=== PATIENT | female | born 1965 | race Caucasian/White ===

== ENCOUNTER 2017-06-03 09:08 | Inpatient (IN) | payer BC ==
[2017-05-17 10:58] VITALS: Ht 162.6 cm; Wt 75.7 kg
--- NOTE | 2017-05-17 11:26 | PAT Medication Instructions ---
Service Date May 17, 2017. Current Home Medication List Albuterol Sulfate (Proair Respiclick), 2 PUFF INH Q4 PRN for SOB/Wheezing Azelastine Hcl (Astelin Nasal [place]), 2 SPRAYS ALPHONSO 1-2 X DAILY Citalopram Hydrobromide (Citalopram Hydrobromide), 20 MG PO HS Levocetirizine Dihydrochloride (Xyzal), 5 MG PO HS Montelukast Sodium (Singulair), 10 MG PO QPM Multivitamins/Minerals (Mvi With Minerals), 1 TAB PO QPM Saccharomyces Boulardii (Probiotic), 1 CAP PO QPM Medication Instructions For Your Scheduled Surgery - Take the following medications the morning of surgery: Azelastine Hcl (Astelin Nasal [place]), 2 SPRAYS ALPHONSO 1-2 X DAILY Albuterol Sulfate (Proair Respiclick), 2 PUFF INH Q4 PRN for SOB/Wheezing (use if needed; BRING TO HOSPITAL) - Take the following medications as scheduled the night before surgery: Citalopram Hydrobromide (Citalopram Hydrobromide), 20 MG PO HS Levocetirizine Dihydrochloride (Xyzal), 5 MG PO HS Montelukast Sodium (Singulair), 10 MG PO QPM Multivitamins/Minerals (Mvi With Minerals), 1 TAB PO QPM Saccharomyces Boulardii (Probiotic), 1 CAP PO QPM Albuterol Sulfate (Proair Respiclick), 2 PUFF INH Q4 PRN for SOB/Wheezing If you have any questions please call us at [phone] or [phone] or [phone]
[2017-06-03] VITALS (8 sets, daily range): BP systolic 93–114; BP diastolic 58–72; PULSE 55–69; TEMP 34.9–36.5; O2SAT 93–100
[~2017-06-03] VITALS: Ht 162.6 cm; Wt 75.7 kg
[2017-06-03] MEDS: TRANEXAMIC ACID INJ 1,000 MG in SODIUM CHLORIDE 0.9% 100ML 100 ML IV SCH ×2 (06:30→11:35)
[~2017-06-03 09:08] MED LIST: ACETAMINOPHEN 500 MG TAB PO SCH; ALBU18002 INH; ASTN NAE; ATROPINE SULFATE 0.1 MG/ML 5ML SYR IV PRN; BUPIVACAINE 0.25% 30 ML VIAL ONE; BUPIVACAINE 0.5 % 5 MG/1 ML PF 10ML VIAL ONE; CEFAZOLIN 2000 MG/60 ML D5W 60 ML IV SCH; CITA20TA4 PO; EpHEDrine SULFATE INJ 50 MG/ML AMP IV PRN; FAMOTIDINE 20 MG TAB PO SCH; GABAPENTIN 300 MG CAP PO SCH; LACTATED RINGER'S 1000ML 1,000 ML IV SCH; LACTATED RINGER'S 1000ML 500 ML IV ONE; LACTATED RINGER'S 1000ML IV SCH; LEVO-371 PO; MONT1TAB3 PO; MULT-513 PO; ONDANSETRON INJ 2 MG/ML 2 ML VIAL IV PRN; ROPIVACAINE 5MG/ML 30 ML 150 MG, BUPIVACAINE/EPINEPHR 0.5% MPF 30 ML, KETOROLAC TROMETH... INFIL SCH; SACC250C11 PO; TRAMADOL HCL 50 MG TAB PO SCH
--- NOTE | 2017-06-03 09:55 | History & Physical Bridge Note ---
H&P Re-Evaluation Bridge Note: I have examined the patient, reviewed the History & Physical and in the interval since the performance of the History & Physical I have noted the following changes of clinical significance: No changes noted
--- NOTE | 2017-06-03 09:57 | History and Physical ---
History & Physical Date Jun 03, 2017. Chief Complaint Osteoarthritis Right Knee History of Present Illness The patient is a 51 year old female with complaints of Past Medical/Surgical History Medical Problems: (1) Allergic rhinitis (2) Depression (3) Normal colonoscopy Surgical Problems: (1) H/O dilation and curettage (2) H/O sinus surgery (3) Hx of tonsillectomy (4) S/P right knee arthroscopy Additional History Hepatic Disease: No Endocrine Disorder: No Kidney Disease: No Hypertension: No Heart Disease: No Bleeding Tendencies: No Infectious Diseases: No Allergies Coded Allergies: Animal Dander (Verified Allergy, Unknown, HAY FEVER, 06/03/17) Dust (Verified Allergy, Unknown, HAY FEVER, 06/03/17) NO KNOWN DRUG ALLERGIES (Verified Allergy, Unknown, NKDA, 06/03/17) POLLEN (Verified Allergy, Unknown, HAY FEVER, 06/03/17) Ragweed (Verified Allergy, Unknown, HAYFEVER, 06/03/17) Home Medications Scheduled Azelastine Hcl (Astelin Nasal [place]), 2 SPRAYS ALPHONSO 1-2 X DAILY Citalopram Hydrobromide (Citalopram Hydrobromide), 20 MG PO HS Levocetirizine Dihydrochloride (Xyzal), 5 MG PO HS Montelukast Sodium (Singulair), 10 MG PO QPM Multivitamins/Minerals (Mvi With Minerals), 1 TAB PO QPM Saccharomyces Boulardii (Probiotic), 1 CAP PO QPM Scheduled PRN Albuterol Sulfate (Proair Respiclick), 2 PUFF INH Q4 PRN for SOB/Wheezing Physical Examination Skin: warm/dry, no rash Eyes: normal inspection, EOMI, sclerae normal ENT: normal ENT inspection, pharynx normal Head: normocephalic, atraumatic Neck: supple, no adenopathy, trachea midline Respiratory/Chest: lungs clear, normal breath sounds, no respiratory distress Cardiovascular: regular rate, rhythm, no edema, no murmur Abdomen / GI: normal bowel sounds, non tender Back: normal inspection Extremities: normal inspection, normal range of motion Neurologic/Psych: no motor/sensory deficits, alert, normal reflexes, oriented x 3 Diagnosis Osteoarthritis Right Knee ASA Classification: ASA Class II Plan of Treatment Right Total Knee
[2017-06-03] MEDS ORDERED: ONDANSETRON INJ 2 MG/ML 2 ML VIAL ONE (10:41)
[2017-06-03] MEDS ORDERED: PROPOFOL IV EMULSION 10 MG/ML 20 ML VIAL IV ONE (10:41)
[2017-06-03] MEDS ORDERED: FENTANYL CITRATE INJ 50 MCG/1 ML 2 ML VIAL ONE (10:42)
[2017-06-03] MEDS ORDERED: MIDAZOLAM HCL 1 MG/ML 2ML VIAL ONE ×2 (10:42→12:11)
[2017-06-03] MEDS ORDERED: ORTHO JOINT ANESTHETIC ONE (10:49)
[2017-06-03] MEDS ORDERED: BACITRACIN 50000 UNIT VIAL ONE (10:49)
[2017-06-03] MEDS ORDERED: BUPIVACAINE 0.5 % 5 MG/1 ML PF 10ML VIAL ONE (11:23)
--- NOTE | 2017-06-03 13:33 | [facility] Post Operative Brief Note ---
Immediate Operative Summary Operative Date Jun 03, 2017. Pre-Operative Diagnosis Right knee degenerative joint disease Post-Operative Diagnosis same as pre-operative Procedure(s) Performed Right Total Knee Arthroplasty Surgeon Dr. Suhas Casas Nick Setter Surgeon(s) Leobardo Gillespie PA-C Estimated Blood Loss 20ML Findings as above Specimens A: Right knee bone and tissue Complication(s) None Disposition Recovery Room / PACU
[2017-06-03] MEDS ORDERED: BISACODYL 10 MG SUPP PR PRN (13:45)
[2017-06-03] MEDS ORDERED: EpHEDrine SULFATE 50MG/5ML SYR ONE (13:45)
[2017-06-03] MEDS ORDERED: SOD PHOSPHATE/SOD BIPHOSPHATE ENEMA 132 ML BTL PR PRN (13:45)
[2017-06-03] MEDS ORDERED: MoRPHine SULFATE 2 MG/ML CARP IV PRN (13:45)
[2017-06-03] MEDS ORDERED: ONDANSETRON INJ 2 MG/ML 2 ML VIAL IV PRN (13:45)
[2017-06-03] MEDS ORDERED: METOCLOPRAMIDE HCL INJ 5 MG/ML 2 ML VIAL IV PRN (13:45)
[2017-06-03] MEDS ORDERED: MAGNESIUM HYDROXIDE SUSP 30 ML UDC PO PRN (13:45)
[2017-06-03] MEDS ORDERED: SILVER SULFADIAZINE 1% CR 50 GM JAR EXT PRN (13:45)
--- NOTE | 2017-06-03 14:33 | DIAGNOSTIC IMAGING REPORT ---
RIGHT KNEE 1 OR 2 VIEWS ROUTINE CLINICAL HISTORY: 51 years-old Female presenting with right knee arthritis. TECHNIQUE: Frontal and lateral views of the right knee were obtained. COMPARISON: 08/18/2016. FINDINGS: Interval total right knee arthroplasty with patellar resurfacing. Surgical drain in place. Soft tissue emphysema and skin brenda noted. No acute fracture or malalignment. No hardware competition. Trace knee joint effusion may be present. IMPRESSION: Expected postoperative appearance status post total right knee arthroplasty and patellar resurfacing. Electronically signed by: Chino Baldwin M.D. 06/03/2017 2:32 PM Dictated Date/Time: 06/03/2017 2:31 PM
[2017-06-03] MEDS ORDERED: ALBUTEROL HFA 8 GM INHALER INH PRN (15:15)
--- NOTE | 2017-06-03 15:46 | Anesthesiology Progress Note ---
Anesthesia Post Op Note Date & Time Jun 03, 2017 at 15:46 Vital Signs Pain Intensity: 0 Vital Signs Past 12 Hours Date Time Temp Pulse Resp B/P (MAP) Pulse Ox O2 Delivery O2 Flow Rate FiO2 06/03/17 15:06 62 13 98 06/03/17 15:06 62 13 06/03/17 15:05 94/61 06/03/17 15:01 64 16 06/03/17 15:01 65 16 98 06/03/17 15:00 90/63 06/03/17 14:56 62 10 06/03/17 14:56 61 10 98 06/03/17 14:55 93/64 06/03/17 14:51 62 11 06/03/17 14:51 62 11 98 06/03/17 14:50 99/64 06/03/17 14:46 65 14 06/03/17 14:46 65 14 97 06/03/17 14:45 36.9 06/03/17 14:41 63 16 98 06/03/17 14:41 62 16 06/03/17 14:40 97/65 06/03/17 14:36 68 14 06/03/17 14:36 68 14 97/63 99 06/03/17 14:31 63 13 98 06/03/17 14:31 65 13 06/03/17 14:30 98/67 06/03/17 14:26 64 14 06/03/17 14:26 63 14 97 06/03/17 14:25 103/70 06/03/17 14:21 67 12 97/72 98 06/03/17 14:21 68 12 06/03/17 14:16 67 8 99 06/03/17 14:16 67 8 06/03/17 14:15 105/68 06/03/17 14:11 74 18 98 06/03/17 14:11 72 18 06/03/17 14:10 102/67 06/03/17 14:08 70 14 100 06/03/17 14:08 69 14 06/03/17 14:06 88/60 06/03/17 14:03 68 11 99 06/03/17 14:03 67 11 06/03/17 14:01 107/61 06/03/17 13:59 102/62 06/03/17 13:58 71 14 100 06/03/17 13:58 71 14 06/03/17 13:58 36.2 71 16 102/62 98 Mask 10 06/03/17 09:47 36.5 64 20 97/62 97 Room Air Notes Mental Status: alert / awake / arousable, participated in evaluation Pt Amnestic to Procedure: Yes Nausea / Vomiting: adequately controlled Pain: adequately controlled Airway Patency, RR, SpO2: stable & adequate BP & HR: stable & adequate Hydration State: stable & adequate Neuraxial Anesthesia: was administered, sensory block is resolving Anesthetic Complications: no major complications apparent
[2017-06-03] MEDS: SODIUM CHLORIDE 0.9% 1000ML 1,000 ML IV SCH (16:11)
[2017-06-03] MEDS: KETOROLAC TROMETHAMINE 30 MG/ML VIAL IV. SCH ×2 (16:22→22:29)
--- NOTE | 2017-06-03 16:43 | OPERATIVE REPORT ---
DATE OF OPERATION: 06/03/2017 PREOPERATIVE DIAGNOSIS: Primary osteoarthritis of the right knee. POSTOPERATIVE DIAGNOSIS: Same. PROCEDURE: Right total knee arthroplasty. SURGEON: Dr. Suhas Casas. [employer] MACHINE HELPER: David Gillespie PA-C, whose assistance was necessary for positioning the knee and helping with retraction. ANESTHESIA: Spinal with a right adductor nerve block. COMPLICATIONS: None. CONDITION: Stable to PACU. IMPLANTS USED: I used a [employer]omet Vanguard right total knee arthroplasty with a size 62.5 right femur, 67 tibia, 28 patella and a size 10 posterior stabilized bearing. All complements were cemented with Palacos-G cement. INDICATIONS: Mimi is a pleasant 51-year-old female who presented to my office with chronic right knee pain. X-rays and clinical examination were diagnostic for primary osteoarthritis of the right knee. After failing conservative treatment, she elected to undergo a right total knee arthroplasty. DESCRIPTION OF PROCEDURE: On 06/03/2017, she arrived at [facility] for the above procedure. She was seen in the preoperative holding area and the operative extremity was identified and signed. She and her preoperative antibiotics, a right adductor nerve block and a spinal anesthetic. She was taken back to the operating room, laid on the table in supine position and put under basic sedation. The right knee was then prepped and draped in sterile fashion. Time-out was done and the patient and operative extremity was properly identified. A midline incision was made directly over the patella. Dissection was taken down to the extensor mechanism and a medial parapatellar arthrotomy was used. The medial retinaculum was released. The fat pad was left intact. The knee was then flexed. ACL, PCL and meniscus were then removed. A drill was sent down the center of the femoral canal followed by an intramedullary layla. Off that layla, a distal femoral cutting guide was placed. A 12 mm was resected off the distal femur at 5 degrees of valgus. A posterior referencing guide was then used to measure the distal femur and it measured to be a size 62.5. Two drill holes were placed in 3 degrees of external rotation. A 4-in-1 cutting block was then impacted into place. Anterior, posterior and chamfer cuts were then made. The box was then resected for the posterior stabilizing component. The proximal tibia was exposed. A drill was sent down the center of the tibial canal followed by an intramedullary layla. Off that layla, a proximal tibial resection guide was placed and 2 mm was resected off the low medial side. The tibia was then measured to be a size 67 and the tibia was then punched. The posterior aspect of the knee was then opened up and any soft tissue remnants were removed and osteophytes removed off the posterior femur. Trial components were then placed. The knee was brought through a full range of motion and felt to be stable. The patella was then everted and 8 mm was resected off the posterior aspect. The patella measured to be a size 28 and 3 drill holes were placed. A patellar button was trialled and seemed to be a good fit. Trials were then removed. The knee wound was irrigated and surrounding soft tissues were injected with 100 mL orthopedic pain control cocktail. The final components were cemented into place with Palacos-G cement. A size 10 polyethylene insert was then snapped into place and anterior bar was locked. The entire knee was then irrigated with 3 liters of normal saline solution with bacitracin. Two drains were placed. The extensor mechanism was closed with #1 FiberWire suture in the superior medial aspect and #1 Vicryl both proximally and distally. The skin was closed with 2-0 Vicryl and 3-0 V-Loc suture and brenda. She was then placed in a soft dressing and taken to the postanesthesia care unit in stable condition. She tolerated the procedure well. I attest to the content of the Intraoperative Record and any orders documented therein. Any exception s are noted below.
[2017-06-03] MEDS: FERROUS GLUCONATE 324 MG TAB PO SCH (18:04)
[2017-06-03] MEDS: ACETAMINOPHEN IV 1,000 MG in EMPTY BAG 0 ML IV SCH (18:09)
[2017-06-03] MEDS: CEFAZOLIN IV 1,000 MG in DEXTROSE 5% 50ML 50 ML IV SCH (19:26)
[2017-06-03] MEDS: MONTELUKAST SOD 10 MG TAB PO SCH (20:42)
[2017-06-03] MEDS: CITALOPRAM 20 MG TAB PO SCH (20:42)
[2017-06-03] MEDS: SENNA 8.6 MG TAB PO SCH (20:42)
[2017-06-03] MEDS: DOCUSATE SODIUM 100 MG CAP PO SCH (20:43)
[2017-06-03] MEDS: OXYCODONE HCL IR 5 MG TAB (IMMEDIATE RELEASE) PO PRN (20:47)
[2017-06-03] MEDS ORDERED: ASPIRIN 325 MG ECTAB PO SCH (21:00)
[2017-06-04] VITALS (7 sets, daily range): BP systolic 96–112; BP diastolic 62–71; PULSE 57–72; TEMP 36.5–36.7; O2SAT 93–100
[2017-06-04] MEDS: SODIUM CHLORIDE 0.9% 1000ML 1,000 ML IV SCH ×2 (00:03→09:53)
[2017-06-04] MEDS: ACETAMINOPHEN IV 1,000 MG in EMPTY BAG 0 ML IV SCH ×3 (02:03→17:03)
[2017-06-04] MEDS: CEFAZOLIN IV 1,000 MG in DEXTROSE 5% 50ML 50 ML IV SCH (03:51)
[2017-06-04] MEDS: KETOROLAC TROMETHAMINE 30 MG/ML VIAL IV. SCH ×4 (03:52→21:05)
[2017-06-04 06:27] LABS: HEMATOCRIT 33.4 % (37-47); MEAN CELL VOLUME 96.5 fL (80-100); MEAN CORPUSCULAR HEMOGLOBIN 31.8 pg (25-34); MEAN CORPUSCULAR HGB CONC 32.9 g/dl (32-36); MEAN PLATELET VOLUME 8.4 fL (7.4-10.4); PLATELET COUNT 204 K/uL (130-400); RED BLOOD COUNT 3.46 M/uL (4.2-5.4)
[2017-06-04 07:02] LABS: BUN/CREATININE RATIO 12.9 (10-20); CALCIUM 8.2 mg/dl (8.5-10.1); CREATININE 0.93 mg/dl (0.60-1.20); POTASSIUM 4.2 mmol/L (3.5-5.1)
[2017-06-04] MEDS ORDERED: LVNIS30 SQ (07:09)
[2017-06-04] MEDS ORDERED: RXC5 PO (07:09)
--- NOTE | 2017-06-04 07:11 | Discharge Instructions ---
Discharge Instructions Date of Service Jun 04, 2017. Admission Reason for Admission: Right Knee Osteoarthritis Discharge Discharge Diagnosis / Problem: Right Total Knee Discharge Goals Goal(s): Decrease discomfort, Improve function Activity Recommendations Activity Limitations: as noted below . Instructions / Follow-Up Instructions / Follow-Up Activity and Therapy Recommendations: * If you are using [facility] then Physical Therapy will be provided until they feel you are ready to start Outpatient Physical Therapy. If you are not using a Home Health agency then Outpatient Physical Therapy should start about 3-5 days from your day of surgery. Therapy will last about 6-10 weeks * It is important not to put a pillow under your knee when you are relaxing or sleeping. It is just as important to make sure you are getting your knee perfectly straight as it is to regain your knee bend. * You were shown a series of exercises in the hospital. Do these exercises three times each day including the exercises you were shown in physical therapy. * Get up and walk several times each day. For the first four weeks, try not to stand or walk for more than one hour at a time. If you do stand or walk for more than one hour, you will not hurt anything, but your leg will likely swell. * As you feel comfortable, you may change from the walker or crutches to a cane and then to independent walking. Medications: * Narcotic You will likely be sent home from the hospital with a prescription for the narcotic pain medication that worked best throughout your stay. * Aspirin Most patients will be required to take Aspirin 325mg twice a day for 6 weeks after surgery. This is obtained [id number] and a prescription is not necessary. * Other medications may be prescribed for specific circumstances. If you have any questions, please call the office at . * Resume previous home medications unless otherwise instructed TEDs/Elastic Stockings: The white elastic stockings help limit swelling and prevent blood clots from forming in your legs.~ The more you wear them, the more they work. Wear them for six weeks. Showering: You may shower 5 days from the day of surgery. Let the soapy shower water run over the brenda. Do not scrub or soak the incision. Things To Watch For: * Drainage from the incision site that occurs more than one week after your surgery. * Increased redness at the incision site. * Fever above 102 degrees Fahrenheit. * Unusual chest pain or shortness of breath. * Call [facility] at with any of the above problems Follow-Up Visit: Follow-up with Dr. Casas 2-3 weeks after your day of surgery. An appointment was probably scheduled when you signed-up for surgery in the office. If you have any questions call Office Instructions: More detailed instructions as well as Frequently Asked Questions were provided in a folder by our office when you signed-up for surgery. Please review these instructions when you get home. If you have any further questions or concerns, please feel free to call the office at [phone] Current Hospital Diet Patient's current hospital diet: Regular Diet Discharge Diet Recommended Diet: Regular Diet Procedures Procedures Performed: Right Total Knee Arthroplasty Pending Studies Studies pending at discharge: no Medical Emergencies . Who to Call and When: Medical Emergencies: If at any time you feel your situation is an emergency, please call [phone] immediately. . Non-Emergent Contact Non-Emergency issues call your: Surgeon Call Non-Emergent contact if: wound has increased drainage, wound has increased redness . "Provider Documentation" section prepared by Suhas Casas. . VTE Core Measure Inpt VTE Proph given/why not?: Enoxaparin (Lovenox)SQ
--- NOTE | 2017-06-04 08:23 | PROGRESS NOTE ---
DATE: 06/04/2017 CHIEF COMPLAINT: Status post right total knee arthroplasty, postop day #1. PROGRESS: Mimi was seen and examined at bedside today. Overall, she is doing very well. She has already been up and ambulating. Her pain seems controlled. She has no complaints. PHYSICAL EXAMINATION: RIGHT KNEE: The dressing is clean and dry and the drain is to suction. She has active dorsiflexion and plantarflexion of her right ankle and sensation is intact. LABORATORY DATA: She has an H&H today of 11.0 and 33.4. Her glucose is 102. Her vital signs are all stable on room air, although she is a little hypotensive and bradycardic, but appears stable. She is voiding on her own. X-rays postoperatively of the right knee show the prosthesis to be in anatomical alignment without any evidence of fracture, dislocation or loosening. IMPRESSION: Status post right total knee arthroplasty, postop day #1. PLAN: At this point, she is doing very well. She is on Lovenox for 2 weeks and then aspirin for DVT prophylaxis. She has a history of a PE last year. Her pain is controlled on the oxycodone and scripts were written. She will be seen by physical therapy today. Tomorrow, the nursing staff can change the dressing, pulled the drain and she is scheduled for discharge to home with [facility].
[2017-06-04] MEDS: MULTIVITAMIN TAB PO SCH (08:44)
[2017-06-04] MEDS: FERROUS GLUCONATE 324 MG TAB PO SCH ×3 (08:44→18:14)
[2017-06-04] MEDS: DOCUSATE SODIUM 100 MG CAP PO SCH ×2 (08:44→20:25)
[2017-06-04] MEDS: ENOXAPARIN 30 MG/0.3 ML SYR SQ SCH ×2 (09:54→21:04)
[2017-06-04] MEDS: OXYCODONE HCL IR 5 MG TAB (IMMEDIATE RELEASE) PO PRN (17:02)
[2017-06-04] MEDS: MONTELUKAST SOD 10 MG TAB PO SCH (20:22)
[2017-06-04] MEDS: CITALOPRAM 20 MG TAB PO SCH (20:22)
[2017-06-04] MEDS: SENNA 8.6 MG TAB PO SCH (20:25)
[2017-06-05 00:56] VITALS: BP 98/66; PULSE 61; TEMP 36.5; O2SAT 96
[2017-06-05] MEDS: ACETAMINOPHEN IV 1,000 MG in EMPTY BAG 0 ML IV SCH ×3 (01:53→18:10)
[2017-06-05] MEDS: KETOROLAC TROMETHAMINE 30 MG/ML VIAL IV. SCH ×2 (03:44→10:55)
[2017-06-05 07:32] VITALS: BP 97/66; PULSE 62; TEMP 36.8; O2SAT 96
[2017-06-05] MEDS: FERROUS GLUCONATE 324 MG TAB PO SCH ×3 (07:45→18:09)
--- NOTE | 2017-06-05 08:34 | PROGRESS NOTE ---
DATE: 06/05/2017 CHIEF COMPLAINT: Status post right total knee arthroplasty, postop day #2. PROGRESS: Mimi was seen and examined at bedside today. Overall, she is doing very well. She did have an assisted fall last night. When they removed her dressing, she saw the blood on the dressing. She got lightheaded and slid down a wall. She had no injuries from that. Otherwise, she has been doing great. PHYSICAL EXAMINATION: RIGHT KNEE: The incision is clean and dry and her leg is out in full extension. She has active dorsiflexion and plantarflexion of her right ankle. Sensation is intact. IMPRESSION: Status post right total knee arthroplasty, postop day #2. PLAN: At this point, she is doing very well. Her pain is controlled. She is working well with physical therapy. We will discharge her to home later this morning with [facility] health.
--- NOTE | 2017-06-05 08:48 | DISCHARGE SUMMARY ---
DISCHARGE DIAGNOSIS: Primary osteoarthritis of the right knee. PROCEDURE: Right total knee arthroplasty on 06/03/[address] Suhas Casas. DISCHARGE INSTRUCTIONS: 1. Lovenox 30 mg twice a day for 2 weeks and then aspirin 325 mg twice a day for 4 weeks. 2. Oxycodone 5-10 mg every 4 hours as needed for pain. 3. Albuterol 2 puffs every 4 hours as needed. 4. Astelin nasal spray 2 sprays twice a day. 5. Celexa 20 mg at night. 6. Xyzal 5 mg at night. 7. Singulair 10 mg at night. 8. Daily multivitamin. 9. Daily probiotics. 10. Follow up with Dr. Casas in 2 weeks. 11. Call the office of Dr. Casas with any questions or concerns. HOSPITAL COURSE: Mimi is a pleasant 51-year-old female who presented to my office with chronic right knee pain. X-rays and clinical examination were diagnostic for primary osteoarthritis of the right knee. After failing extensive conservative treatment, she elected to undergo a right total knee arthroplasty. On 06/03/2017, she arrived at [facility] and underwent a right total knee arthroplasty without complications. She had a spinal anesthetic and a right adductor nerve block. Postoperatively, she was placed in a soft compressive dressing and discharged to general orthopedic floor. She does have a history of pulmonary embolism about a year ago. So, I decided to use Lovenox for antimicrobial prophylaxis in the short term. She was started 30 mg twice a day. Her hospital course was uneventful. On postop day #1, her H&H was stable at 11.0 and 33.4. She was able to work well with physical therapy and her pain was controlled. On postop day #2, the dressing was changed and the drain was pulled. She continued to work well with physical therapy. She was subsequently discharged to home with Lovenox for 2 weeks and [facility] Cymax. ADDENDUM: Upon discharge Mimi got up and she felt quite dizzy. Blood pressures showed that she was hypotensive at 97/66. She did not feel ready to go home at that time. We encourage oral fluid intake. She stayed overnight and over the last 24 hours she is feeling much better. Her current blood pressure is 124/78. She has been up several times and is asymptomatic. She was subsequently then discharged to home with the above instructions on postop day #3. AMISH
[2017-06-05 09:03] VITALS: BP 97/66; PULSE 62; TEMP 36.8; O2SAT 96
[2017-06-05] MEDS: MULTIVITAMIN TAB PO SCH (10:03)
[2017-06-05] MEDS: ENOXAPARIN 30 MG/0.3 ML SYR SQ SCH ×2 (10:54→21:48)
[2017-06-05] MEDS: DOCUSATE SODIUM 100 MG CAP PO SCH ×2 (10:55→20:18)
[2017-06-05 15:11] VITALS: BP 106/56; PULSE 67; TEMP 37.4; O2SAT 98
[2017-06-05 16:00] VITALS: O2SAT 98
[2017-06-05] MEDS: OXYCODONE HCL IR 5 MG TAB (IMMEDIATE RELEASE) PO PRN (16:47)
[2017-06-05] MEDS: MONTELUKAST SOD 10 MG TAB PO SCH (20:18)
[2017-06-05] MEDS: CITALOPRAM 20 MG TAB PO SCH (20:19)
[2017-06-05] MEDS: SENNA 8.6 MG TAB PO SCH (20:19)
[2017-06-05 23:13] VITALS: BP 117/74; PULSE 73; TEMP 36.8; O2SAT 95
[2017-06-06] MEDS: ACETAMINOPHEN IV 1,000 MG in EMPTY BAG 0 ML IV SCH (02:18)
[2017-06-06 07:15] VITALS: BP 124/78; PULSE 68; TEMP 37.2; O2SAT 98
[2017-06-06] MEDS: MULTIVITAMIN TAB PO SCH (08:18)
[2017-06-06] MEDS: DOCUSATE SODIUM 100 MG CAP PO SCH (08:18)
[2017-06-06] MEDS: FERROUS GLUCONATE 324 MG TAB PO SCH (08:18)
[2017-06-06] MEDS: OXYCODONE HCL IR 5 MG TAB (IMMEDIATE RELEASE) PO PRN (09:04)
--- NOTE | 2017-06-06 09:55 | PROGRESS NOTE ---
DATE: 06/06/2017 CHIEF COMPLAINT: Status post right total knee arthroplasty, postop day #3. PROGRESS NOTE: Mimi was seen and examined at bedside today. Overall, she is doing much better. Upon discharge, she had an hypotensive episode. When she was standing up, she was feeling dizzy and did not feel ready to go home. We encouraged p.o. fluid intake over the last 24 hours and she is feeling much better. She has been up several times and has been asymptomatic. PHYSICAL EXAMINATION: Physical examination of the right knee, the incision looks good. There is no drainage. She is neurovascularly intact. VITAL SIGNS: Vital signs are all stable on room air. Her blood pressure is 124/78 and her pulse is 68. IMPRESSION: Status post right total knee arthroplasty, postop day #3. PLAN: At this point, she is doing much better. She is going to do stairs for physical therapy this morning and then be discharged to home with [facility] health.
[2017-06-06 10:13] VITALS: BP 124/78; PULSE 68; TEMP 37.2; O2SAT 98
[2017-06-06] MEDS: ENOXAPARIN 30 MG/0.3 ML SYR SQ SCH (10:32)
== END 2017-06-06 10:45 | disposition home health service (06) | DRG 470 ==
LOC: C.ACU 09:08 → C.3E 10:26 → ENRESERV 14:20
PROVIDERS: ADMIT Orthopaedic Surgery; ATTEND Orthopaedic Surgery
PROC: 0SRC0J9 Replacement of Right Knee Joint with Synthetic Substitute, Cemented, Open Approach (ICD-10-PCS; principal; 2017-06-03 11:35)
DX: M17.11 Unilateral primary osteoarthritis, right knee (principal); J45.909 Unspecified asthma, uncomplicated; F32.9 Major depressive disorder, single episode, unspecified; Z86.718 Personal history of other venous thrombosis and embolism; Z86.711 Personal history of pulmonary embolism; Z79.899 Other long term (current) drug therapy

== ENCOUNTER 2022-09-05 10:06 | Observation (INO) ==
[2022-09-05] MEDS ORDERED: SODIUM CHLORIDE 0.9% 1000ML 1,000 ML IV SCH ×2 (11:00→17:04)
--- NOTE | 2022-09-05 11:00 | Emergency Department Note ---
History of Present Illness General Chief complaint: Syncope Stated complaint: FEVER,SYNCOPE Time Seen by Provider: 09/05/22 10:43 History of Present Illness This 57-year-old female presents today with her , for evaluation of fever, myalgias, arthralgias, nausea, vomiting, and a syncopal episode that occurred this morning. Patient states she had a tick bite 2 and half weeks ago. It was on her arm for 5 days and she did not notice it. Left shoulder became sore and she developed a rash. Tick was removed and she was treated with a one- time dose of doxycycline. Patient states that she has had increasing myalgias over the last 3 days. Yesterday she developed shaking chills, fatigue, headache, nausea and vomiting, as well as the arthralgias and myalgias. She did take some ibuprofen yesterday without improvement. She got out of bed this morning and was attempting to go to the bathroom. She states she remembers falling to her knees and feeling very weak. Her states he heard a thump and went to check on her. He states she was not responsive and her eyes were rolled back in her head. He supported her head and put a wet washcloth on her. He states she came to. There was no seizure-like activity. She currently denies any chest pain, shortness of breath, dizziness, or abdominal pain. She states her left shoulder is sore and continues to have a large reddened area. She denies any other joint effusions. No other complaints. She has an appointment to see her PCP at the end of this week for blood work. Home Medications Medication Instructions Recorded Confirmed Type azelastine 137 mcg (0.1 %) nasal 2 spray intranasal BID #0 BTLS 05/15/16 09/05/22 History spray aerosol citalopram 20 mg tablet 20 mg PO HS #0 tabs 05/15/16 09/05/22 History montelukast 10 mg tablet 10 mg PO PM #0 tabs 05/15/16 09/05/22 History multivitamin 1 tab PO DAILY #0 tabs 05/15/16 09/05/22 History albuterol sulfate 90 mcg/actuation 2 inh inhalation Q4H PRN sob ##0 05/17/17 09/05/22 History breath activated powder inhaler (ProAir RespiClick) fluticasone propionate 50 1 spray intranasal BID PRN 09/05/22 09/05/22 History mcg/actuation nasal Allergic Symptoms spray,suspension levocetirizine 5 mg tablet 5 mg PO DAILY 09/05/22 09/05/22 History rivaroxaban 20 mg tablet (Xarelto) 20 mg PO PM 09/05/22 09/05/22 History doxycycline hyclate 100 mg tablet 100 mg PO BID 19 days #38 tabs 09/07/22 Rx Allergies Allergy/AdvReac Type Severity Reaction Status Date / Time animal dander Allergy Unknown HAY FEVER Verified 09/05/22 12:32 No Known Drug Allergies Allergy Unknown NKDA Verified 09/05/22 12:32 pollen extracts Allergy Unknown HAY FEVER Verified 09/05/22 12:32 ragweed pollen Allergy Unknown HAYFEVER Verified 09/05/22 12:32 Dust Allergy Unknown HAY FEVER Uncoded 09/05/22 12:32 Past Med/Surg History Medical History Allergic rhinitis Depression History of pulmonary embolism Moderate persistent asthma Surgical History H/O dilation and curettage H/O sinus surgery History of arthroscopic knee surgery Hx of tonsillectomy Family History Mother Melanoma Social History Smoking Status: Never smoker Hx Alcohol Use: No Hx Substance Use: No Preferred Language: Pashto Communication Ability: Effective [facility] Director Required: No Beliefs That Will Affect Care: None Current Living Situation: Spouse Other Information That Helps Us Care for You: No Feels Safe at Home: Yes Safety Concerns: Feels Safe At This Time Assistive Devices: None Review of Systems A total of 10 systems reviewed and were otherwise negative Physical Exam Vital Signs Vital Signs - 24 hr 09/06/22 16:40 Temperature 37.5 C Temperature Source Oral Pulse Rate [Finger] 81 Respiratory Rate 18 Blood Pressure [Right Arm] 103/62 Blood Pressure Mean [Right Arm] 75 Blood Pressure Position [Right Arm] Semi-fowlers Pulse Oximetry 98 Oxygen Delivery Method Room Air General: Well-developed, well-nourished, middle-aged white female, in obvious discomfort. No acute distress. Laying on the bed. Alert and oriented. Conversive. She does appear ill. Skin: Warm and dry with good turgor. No rashes or lesions. No ecchymosis. She does have a round area of erythema and slight edema present on her left deltoid. It is approximately 5 cm in diameter. She states this is where the tick bite occurred. No bull's-eye lesions or additional rash. The patient is not diaphoretic. No abrasions. HEENT: Normocephalic atraumatic. Eyes PERRLA, EOMI. No conjunctiva or scleral injection. Ears TMs intact bilaterally with good light reflexes. No erythema or bulging. No hemotympanum. Canals are patent. Nares patent bilaterally without turbinate enlargement. No significant drainage. No epistaxis. Oropharynx without erythema or exudate. Uvula midline, oral mucosa moist. No lesions present. Lymphatics are palpated without anterior or posterior chain enlargement or tenderness. Heart: Heart RRR. No MGR. Peripheral pulses are 2+. Lungs: Lungs are clear to auscultation. No crackles rhonchi or wheezing. Good air movement. The patient is able to take a deep breath. Abdomen: Abdomen was inspected, auscultated, and palpated. Bowel sounds present x 4. Soft, nontender to palpation. No hepato-splenomegaly. No masses noted. No rebound. Musculoskeletal: Gross motor function of the upper and lower extremities is intact and unremarkable. Left shoulder is sore over the deltoid with motion. Neurologic: Gross sensation is intact across the upper and lower extremities by soft touch. Course Administered Medications Acetaminophen (Acetaminophen 325 Mg Tab) 650 mg PO Q4H PRN PRN Reason: pain/fever Stop: 10/05/22 17:03 Last Admin: 09/07/22 10:56 Dose: 650 mg Documented By: Admin: 09/07/22 05:57 Dose: 650 mg Documented By: Admin: 09/07/22 01:05 Dose: 650 mg Documented By: Admin: 09/06/22 18:43 Dose: 650 mg Documented By: Admin: 09/06/22 12:06 Dose: 650 mg Documented By: Admin: 09/06/22 07:26 Dose: 650 mg Documented By: Admin: 09/05/22 22:28 Dose: 650 mg Documented By: ESTRELLA Cetirizine HCl (Cetirizine Hcl 10 Mg Tablet) 10 mg PO DAILY [facility] Stop: 10/06/22 12:59 Last Admin: 09/07/22 08:24 Dose: Not Given Documented By: Admin: 09/06/22 14:16 Dose: Not Given Documented By: KYLE Citalopram Hydrobromide (Citalopram 20 Mg Tab) 20 mg PO HS RUSSELL Stop: 10/05/22 20:59 Last Admin: 09/06/22 21:44 Dose: Not Given Documented By: Admin: 09/05/22 22:30 Dose: Not Given Documented By: ESTRELLA Ceftriaxone Sodium 2,000 mg/ (Dextrose) 70 mls @ 100 mls/hr IV Q24H RUSSELL; Protocol Stop: 09/08/22 08:59 Last Infusion: 09/07/22 09:57 Dose: 0 mls/hr Documented By: Admin: 09/07/22 09:07 Dose: 100 mls/hr Documented By: JONATHAN Co-signed By: REFUGIO Infusion: 09/06/22 09:43 Dose: 0 mls/hr Documented By: Admin: 09/06/22 09:01 Dose: 100 mls/hr Documented By: KYLE Ketorolac Tromethamine (Ketorolac Tromethamine 10 Mg Tablet) 10 mg PO Q8H PRN PRN Reason: Pain or Fever Stop: 09/08/22 08:32 Last Admin: 09/06/22 16:15 Dose: 10 mg Documented By: KYLE Montelukast Sodium (Montelukast Sodium 10 Mg Tablet) 10 mg PO PM RUSSELL Stop: 10/05/22 20:59 Last Admin: 09/06/22 21:44 Dose: Not Given Documented By: Admin: 09/05/22 22:30 Dose: Not Given Documented By: ESTRELLA Rivaroxaban (Rivaroxaban 20 Mg Tab) 20 mg PO QDD URSSELL Stop: 10/05/22 17:29 Last Admin: 09/06/22 17:00 Dose: 20 mg Documented By: Admin: 09/05/22 17:39 Dose: Not Given Documented By: KD Discontinued Medications Acetaminophen (Acetaminophen 500 Mg Tab) 1,000 mg PO NOW STA Stop: 09/05/22 13:29 Last Admin: 09/05/22 13:36 Dose: 1,000 mg Documented By: QGV Sodium Chloride (Nss 1000ml) 1,000 mls @ 999 mls/hr IV .Q1H1M RUSSELL Stop: 09/05/22 12:00 Last Infusion: 09/05/22 13:30 Dose: 0 mls/hr Documented By: Admin: 09/05/22 11:30 Dose: 999 mls/hr Documented By: QGV Ceftriaxone Sodium (Rocephin) 1,000 mg in 50 mls @ 100 mls/hr IV NOW STA Stop: 09/05/22 14:16 Last Admin: 09/05/22 15:14 Dose: Not Given Documented By: QGV Doxycycline Hyclate 100 mg/ (Dextrose) 110 mls @ 50 mls/hr IV Q12H RUSSELL; Protocol Stop: 09/16/22 03:59 Last Infusion: 09/07/22 06:24 Dose: 0 mls/hr Documented By: Admin: 09/07/22 04:02 Dose: 50 mls/hr Documented By: Infusion: 09/06/22 18:27 Dose: 0 mls/hr Documented By: Admin: 09/06/22 16:15 Dose: 50 mls/hr Documented By: Infusion: 09/06/22 06:58 Dose: 0 mls/hr Documented By: Admin: 09/06/22 04:46 Dose: 50 mls/hr Documented By: RES Doxycycline Hyclate 100 mg/ (Dextrose) 110 mls @ 55 mls/hr IV NOW ONE Stop: 09/05/22 17:29 Last Infusion: 09/05/22 17:37 Dose: 0 mls/hr Documented By: Admin: 09/05/22 15:40 Dose: 55 mls/hr Documented By: QGV Sodium Chloride (Nss 1000ml) 1,000 mls @ 80 mls/hr IV .[id number] RUSSELL Stop: 09/06/22 05:33 Last Infusion: 09/06/22 06:21 Dose: 0 mls/hr Documented By: Admin: 09/05/22 17:40 Dose: 80 mls/hr Documented By: CLOTILDE Sodium Chloride (Nss 1000ml) 1,000 mls @ 125 mls/hr IV .Q8H RUSSELL Stop: 09/06/22 23:59 Last Infusion: 09/07/22 01:05 Dose: 0 mls/hr Documented By: Admin: 09/06/22 17:00 Dose: 125 mls/hr Documented By: Infusion: 09/06/22 16:18 Dose: 125 mls/hr Documented By: Admin: 09/06/22 08:18 Dose: 125 mls/hr Documented By: KYLE Ibuprofen (Ibuprofen 200 Mg Tab) 400 mg PO NOW STA Stop: 09/05/22 15:23 Last Admin: 09/05/22 15:40 Dose: 400 mg Documented By: QGV Ketorolac Tromethamine (Ketorolac Tromethamine 15 Mg/Ml Vial) 15 mg IV NOW ONE Stop: 09/06/22 00:22 Last Admin: 09/06/22 01:41 Dose: 15 mg Documented By: ESTRELLA Miscellaneous (Levocetirizine 5mg- Order Awaiting Action) 1 each N/A QS RUSSELL Stop: 10/06/22 00:00 Last Admin: 09/06/22 09:02 Dose: Not Given Documented By: Admin: 09/06/22 00:03 Dose: Not Given Documented By: ESTRELLA Medical Decision Making Differential Diagnosis Lyme disease, anaplasmosis, viral illness, COVID infection, dehydration syncopal episode of unknown cause, arrhythmia Medical Records Attestation: I reviewed the patient's medical records. Home Medications Current Medication List: was personally reviewed by me Laboratory Data CBC, chemistry panel, troponin, Lyme titer, anaplasmosis smear, TSH, lactate, COVID swab, and UA were obtained. CBC shows no elevation in white count at 8.16. The rest of the CBC is relatively unremarkable. Urine is clear with no ketones, 2+ blood, and no leukocyte esterase. No bacteria. Chemistry panel is unremarkable. Lyme titer is negative. Smear is negative. Combination COVID swab is negative for COVID, RSV, and influenza. Troponin is normal. Lactate is normal at 0.8. TSH is also normal. Result diagrams: 09/07/22 08:43 09/07/22 08:43 Lab Results 1109/05/22 09/05/22 Range/Units 11:39 12:05 12:05 WBC 8.16 (4.8-10.8) K/ul RBC 3.61 L (3.93-5.22) M/uL Hgb 11.7 L (12.0-16.0) g/dl Hct 34.9 (34.1-44.9) % MCV 96.7 (80.0-100.0) fL MCH 32.4 (25.0-34.0) pg MCHC 33.5 (32.0-36.0) g/dL RDW Std Deviation 47.2 H (36.4-46.3) fL RDW Coeff of Sen 13.2 (11.5-14.5) % Plt Count 194 (130-400) K/uL MPV 8.7 L (9.4-12.3) fL Immature Gran % (Auto) 0.6 % Neut % (Auto) 85.1 % Lymph % (Auto) 6.7 % [place] % (Auto) 7.4 % Eos % (Auto) 0.0 % Baso % (Auto) 0.2 % Neut # (Auto) 6.94 H (1.4-6.5) K/uL Lymph # (Auto) 0.55 L (1.2-3.4) K/uL [place] # (Auto) 0.60 (0.24-0.82) K/uL Eos # (Auto) 0.00 (0-0.50) K/uL Baso # (Auto) 0.02 (0-0.2) K/uL Immature Gran # (Auto) 0.05 H (0.00-0.02) K/uL PT (9.0-12.0) Seconds INR (0.9-1.1) Sodium (136-145) mmol/L Potassium (3.5-5.1) mmol/L Chloride (98-107) mmol/L Carbon Dioxide (21-32) mmol/L Anion Gap (3-11) BUN (6-23) mg/dl Creatinine (0.6-1.2) mg/dl Est Cr Clr Drug Dosing Est GFR ( Amer) ml/min Est GFR (Non-Af Amer) ml/min BUN/Creatinine Ratio (10-20) Glucose (70-99(Fasting)) mg/dl Lactate (0.4-2.0) mmol/L Calcium (8.5-10.1) mg/dl Magnesium (1.7-2.4) mg/dl Total Bilirubin (0.2-1.0) mg/dl AST (13-39) U/L ALT (7-52) U/L Alkaline Phosphatase (34-104) U/L Troponin I High Sens (0-14) pg/ml Total Protein (6.0-8.3) gm/dl Albumin (3.4-5.0) gm/dl Globulin (2.5-4.0) gm/dl Albumin/Globulin Ratio (0.9-2) TSH (0.300-4.500) uIu/ml Urine Color Yellow Urine Appearance Clear (Clear) Urine pH 6.5 (4.5-7.5) Ur Specific [place] 1.017 (1.000-1.030) Urine Protein Trace H (Negative) Urine Glucose (UA) Negative (Negative) Urine Ketones Negative (Negative) Urine Blood 2+ H (Negative) Urine Nitrite Negative (Negative) Urine Bilirubin Negative (Negative) Urine Urobilinogen Negative (Negative) Ur Leukocyte Esterase Negative (Negative) Urine WBC (Auto) 1-5 (0-5) /hpf Urine RBC (Auto) 10-30 H (0-4) /hpf U Hyaline Cast (Auto) 1-5 (0-5) /lpf U Epithel Cells (Auto) 20-30 H (0-5) /lpf Urine Bacteria (Auto) Negative (Negative) Anaplasma Smear See Comment Babesia Smear See Comment Lyme Disease IgG Ab (Negative) Lyme Disease IgM Ab (Negative) SARS-CoV-2 (PCR) (Negative) Influenza Type A (PCR) (Neg) Influenza Type B (PCR) (Neg) RSV (RT-PCR) (Neg) 09/05/22 09/05/22 09/05/22 Range/Units 12:05 12:05 12:05 WBC (4.8-10.8) K/ul RBC (3.93-5.22) M/uL Hgb (12.0-16.0) g/dl Hct (34.1-44.9) % MCV (80.0-100.0) fL MCH (25.0-34.0) pg MCHC (32.0-36.0) g/dL RDW Std Deviation (36.4-46.3) fL RDW Coeff of Sen (11.5-14.5) % Plt Count (130-400) K/uL MPV (9.4-12.3) fL Immature Gran % (Auto) % Neut % (Auto) % Lymph % (Auto) % [place] % (Auto) % Eos % (Auto) % Baso % (Auto) % Neut # (Auto) (1.4-6.5) K/uL Lymph # (Auto) (1.2-3.4) K/uL [place] # (Auto) (0.24-0.82) K/uL Eos # (Auto) (0-0.50) K/uL Baso # (Auto) (0-0.2) K/uL Immature Gran # (Auto) (0.00-0.02) K/uL PT 12.2 H (9.0-12.0) Seconds INR 1.2 H (0.9-1.1) Sodium 139 (136-145) mmol/L Potassium 4.0 (3.5-5.1) mmol/L Chloride 106 (98-107) mmol/L Carbon Dioxide 23 (21-32) mmol/L Anion Gap 10 (3-11) BUN 17 (6-23) mg/dl Creatinine 0.95 (0.6-1.2) mg/dl Est Cr Clr Drug Dosing Not Reportable Est GFR ( Amer) 76.5 ml/min Est GFR (Non-Af Amer) 66.0 ml/min BUN/Creatinine Ratio 17.9 (10-20) Glucose 98 (70-99(Fasting)) mg/dl Lactate (0.4-2.0) mmol/L Calcium 9.0 (8.5-10.1) mg/dl Magnesium 1.8 (1.7-2.4) mg/dl Total Bilirubin 0.6 (0.2-1.0) mg/dl AST 22 (13-39) U/L ALT 17 (7-52) U/L Alkaline Phosphatase 47 (34-104) U/L Troponin I High Sens 4.1 (0-14) pg/ml Total Protein 6.9 (6.0-8.3) gm/dl Albumin 4.2 (3.4-5.0) gm/dl Globulin 2.7 (2.5-4.0) gm/dl Albumin/Globulin Ratio 1.6 (0.9-2) TSH 0.484 (0.300-4.500) uIu/ml Urine Color Urine Appearance (Clear) Urine pH (4.5-7.5) Ur Specific [place] (1.000-1.030) Urine Protein (Negative) Urine Glucose (UA) (Negative) Urine Ketones (Negative) Urine Blood (Negative) Urine Nitrite (Negative) Urine Bilirubin (Negative) Urine Urobilinogen (Negative) Ur Leukocyte Esterase (Negative) Urine WBC (Auto) (0-5) /hpf Urine RBC (Auto) (0-4) /hpf U Hyaline Cast (Auto) (0-5) /lpf U Epithel Cells (Auto) (0-5) /lpf Urine Bacteria (Auto) (Negative) Anaplasma Smear Babesia Smear Lyme Disease IgG Ab (Negative) Lyme Disease IgM Ab (Negative) SARS-CoV-2 (PCR) (Negative) Influenza Type A (PCR) (Neg) Influenza Type B (PCR) (Neg) RSV (RT-PCR) (Neg) 09/05/22 09/05/22 09/05/22 Range/Units 12:05 14:13 14:22 WBC (4.8-10.8) K/ul RBC (3.93-5.22) M/uL Hgb (12.0-16.0) g/dl Hct (34.1-44.9) % MCV (80.0-100.0) fL MCH (25.0-34.0) pg MCHC (32.0-36.0) g/dL RDW Std Deviation (36.4-46.3) fL RDW Coeff of Sen (11.5-14.5) % Plt Count (130-400) K/uL MPV (9.4-12.3) fL Immature Gran % (Auto) % Neut % (Auto) % Lymph % (Auto) % [place] % (Auto) % Eos % (Auto) % Baso % (Auto) % Neut # (Auto) (1.4-6.5) K/uL Lymph # (Auto) (1.2-3.4) K/uL [place] # (Auto) (0.24-0.82) K/uL Eos # (Auto) (0-0.50) K/uL Baso # (Auto) (0-0.2) K/uL Immature Gran # (Auto) (0.00-0.02) K/uL PT (9.0-12.0) Seconds INR (0.9-1.1) Sodium (136-145) mmol/L Potassium (3.5-5.1) mmol/L Chloride (98-107) mmol/L Carbon Dioxide (21-32) mmol/L Anion Gap (3-11) BUN (6-23) mg/dl Creatinine (0.6-1.2) mg/dl Est Cr Clr Drug Dosing Est GFR ( Amer) ml/min Est GFR (Non-Af Amer) ml/min BUN/Creatinine Ratio (10-20) Glucose (70-99(Fasting)) mg/dl Lactate 0.8 (0.4-2.0) mmol/L Calcium (8.5-10.1) mg/dl Magnesium (1.7-2.4) mg/dl Total Bilirubin (0.2-1.0) mg/dl AST (13-39) U/L ALT (7-52) U/L Alkaline Phosphatase (34-104) U/L Troponin I High Sens (0-14) pg/ml Total Protein (6.0-8.3) gm/dl Albumin (3.4-5.0) gm/dl Globulin (2.5-4.0) gm/dl Albumin/Globulin Ratio (0.9-2) TSH (0.300-4.500) uIu/ml Urine Color Urine Appearance (Clear) Urine pH (4.5-7.5) Ur Specific [place] (1.000-1.030) Urine Protein (Negative) Urine Glucose (UA) (Negative) Urine Ketones (Negative) Urine Blood (Negative) Urine Nitrite (Negative) Urine Bilirubin (Negative) Urine Urobilinogen (Negative) Ur Leukocyte Esterase (Negative) Urine WBC (Auto) (0-5) /hpf Urine RBC (Auto) (0-4) /hpf U Hyaline Cast (Auto) (0-5) /lpf U Epithel Cells (Auto) (0-5) /lpf Urine Bacteria (Auto) (Negative) Anaplasma Smear Babesia Smear Lyme Disease IgG Ab Negative (Negative) Lyme Disease IgM Ab Negative (Negative) SARS-CoV-2 (PCR) NEGATIVE (Negative) Influenza Type A (PCR) Negative (Neg) Influenza Type B (PCR) Negative (Neg) RSV (RT-PCR) Negative (Neg) 09/06/22 09/06/22 Range/Units 06:06 06:06 WBC 6.54 (4.8-10.8) K/ul RBC 3.33 L (3.93-5.22) M/uL Hgb 10.9 L (12.0-16.0) g/dl Hct 31.4 L (34.1-44.9) % MCV 94.3 (80.0-100.0) fL MCH 32.7 (25.0-34.0) pg MCHC 34.7 (32.0-36.0) g/dL RDW Std Deviation 45.7 (36.4-46.3) fL RDW Coeff of Sen 13.2 (11.5-14.5) % Plt Count 171 (130-400) K/uL MPV 9.0 L (9.4-12.3) fL Immature Gran % (Auto) % Neut % (Auto) % Lymph % (Auto) % [place] % (Auto) % Eos % (Auto) % Baso % (Auto) % Neut # (Auto) (1.4-6.5) K/uL Lymph # (Auto) (1.2-3.4) K/uL [place] # (Auto) (0.24-0.82) K/uL Eos # (Auto) (0-0.50) K/uL Baso # (Auto) (0-0.2) K/uL Immature Gran # (Auto) (0.00-0.02) K/uL PT (9.0-12.0) Seconds INR (0.9-1.1) Sodium 137 (136-145) mmol/L Potassium 3.6 (3.5-5.1) mmol/L Chloride 107 (98-107) mmol/L Carbon Dioxide 23 (21-32) mmol/L Anion Gap 7 (3-11) BUN 16 (6-23) mg/dl Creatinine 0.93 (0.6-1.2) mg/dl Est Cr Clr Drug Dosing 66.7 Est GFR ( Amer) 78.5 ml/min Est GFR (Non-Af Amer) 67.7 ml/min BUN/Creatinine Ratio 17.2 (10-20) Glucose 114 H (70-99(Fasting)) mg/dl Lactate (0.4-2.0) mmol/L Calcium 8.1 L (8.5-10.1) mg/dl Magnesium (1.7-2.4) mg/dl Total Bilirubin (0.2-1.0) mg/dl AST (13-39) U/L ALT (7-52) U/L Alkaline Phosphatase (34-104) U/L Troponin I High Sens (0-14) pg/ml Total Protein (6.0-8.3) gm/dl Albumin (3.4-5.0) gm/dl Globulin (2.5-4.0) gm/dl Albumin/Globulin Ratio (0.9-2) TSH (0.300-4.500) uIu/ml Urine Color Urine Appearance (Clear) Urine pH (4.5-7.5) Ur Specific [place] (1.000-1.030) Urine Protein (Negative) Urine Glucose (UA) (Negative) Urine Ketones (Negative) Urine Blood (Negative) Urine Nitrite (Negative) Urine Bilirubin (Negative) Urine Urobilinogen (Negative) Ur Leukocyte Esterase (Negative) Urine WBC (Auto) (0-5) /hpf Urine RBC (Auto) (0-4) /hpf U Hyaline Cast (Auto) (0-5) /lpf U Epithel Cells (Auto) (0-5) /lpf Urine Bacteria (Auto) (Negative) Anaplasma Smear Babesia Smear Lyme Disease IgG Ab (Negative) Lyme Disease IgM Ab (Negative) SARS-CoV-2 (PCR) (Negative) Influenza Type A (PCR) (Neg) Influenza Type B (PCR) (Neg) RSV (RT-PCR) (Neg) Imaging Data My Impression: Chest x-ray obtained today was reviewed by me and read by radiology. No pneumothorax or pleural effusion. No pneumonia. Calcified granuloma in the right upper lobe is incidentally noted. No acute cardiopulmonary findings. ECG Data Additional Comments: EKG obtained today shows a normal sinus rhythm with a rate of 79. No acute ST or T wave changes are noted. These were present on previous EKG from March 2017. This was reviewed with Dr. Amado. Blood Pressure Blood Pressure Findings: Normal blood pressure MDM Narrative Patient was evaluated in room B9. Conservative care measures were discussed. IV was established. Labs were obtained. White count was unremarkable. Kidney and liver function tests were normal. She was negative for influenza, COVID, and RSV. Lyme titer was also negative, though this may be altered because of her prophylactic doxycycline dose. Symptoms are consistent with Lyme infection. Chest x-ray obtained today was unremarkable. I did check her temperature on initial presentation. She was 37.1. Part way through her evaluation, she did develop shaking chills. Temperature was retaken and found to be 39.3. Patient was given oral Tylenol 1000 mg with gradual improvement in her symptoms. She was reassured that there was no evidence for abnormal rhythm. EKG was normal. Patient was placed on a monitor while in the ED. She had no episodes of ectopy and remained in normal sinus rhythm. Possibility of dehydration as her cause of syncope was discussed. She also appears to have cellulitis of the left shoulder with the erythema, warmth, and tenderness from the previous tick bite. Impression & Plan Syncope, Cellulitis Patient was given 1 L normal sterile saline IV bolus. She was also given Rocephin gram IV for prophylaxis treatment of cellulitis. Option of discharge versus admission was discussed with she and her . Patient stated that she did not feel well at all, and given her acute onset of fever and constitutional symptoms, observation was thought to be warranted. Patient was seen in conjunction with Dr. Amado, who also evaluated the patient and concurred with today's diagnosis and treatment plan. Hospitalist service was consulted. Please see that dictation for final management. Discharge Plan Visit Data Chief Complaint: Syncope Stated Complaint: FEVER,SYNCOPE ED Provider: Suhas Amado ED Midlevel Provider: Mikal Jerez Discharge Problem: Syncope, Cellulitis Patient Disposition: Admitted As Inpatient Discharge Instructions Interventions: ED Discharge Assessment Last Done: 09/05/22 16:30
[2022-09-05 12:29] LABS: Basophils # (auto) 0.02 K/uL (0-0.2); Basophils % (auto) 0.2 %; Hematocrit (blood only) 34.9 % (34.1-44.9); Hemoglobin 11.7 g/dl (12.0-16.0); Immature Granulocytes # (auto) 0.05 K/uL (0.00-0.02); Immature Granulocytes % (auto) 0.6 %; Lymphocytes # (auto) 0.55 K/uL (1.2-3.4); Lymphocytes % (auto) 6.7 %; Mean Corpuscular Hemoglobin 32.4 pg (25.0-34.0); Mean Corpuscular Hgb Conc 33.5 g/dL (32.0-36.0); Mean Corpuscular Volume 96.7 fL (80.0-100.0); Mean Platelet Volume 8.7 fL (9.4-12.3); Monocytes % (auto) 7.4 %; Neutrophils # (auto) 6.94 K/uL (1.4-6.5); Neutrophils % (auto) 85.1 %; Platelet Count 194 K/uL (130-400); RDW Coefficient of Variation 13.2 % (11.5-14.5); RDW Standard Deviation 47.2 fL (36.4-46.3); Red Blood Count 3.61 M/uL (3.93-5.22); White Blood Count 8.16 K/ul (4.8-10.8)
[2022-09-05 12:39] LABS: Appearance Urine Clear (Clear); Bacteria Urine Automated Negative (Negative); Bilirubin Urine Negative (Negative); Blood Urine 2+ (Negative); Color Urine Yellow; Epithelial Cell Urine Auto 20-30 /lpf (0-5); Glucose Urine UA Negative (Negative); Ketones Urine Negative (Negative); Leukocyte Esterase Urine Negative (Negative); Nitrite Urine Negative (Negative); Protein Urine Trace (Negative); Specific Gravity Urine 1.017 (1.000-1.030); Urobilinogen Urine Negative (Negative); pH Urine 6.5 (4.5-7.5)
[2022-09-05 12:40] LABS: INR 1.2 (0.9-1.1); Prothrombin Time 12.2 Seconds (9.0-12.0)
[2022-09-05 12:57] LABS: Alanine Aminotransferase 17 U/L (7-52); Albumin Globulin Ratio 1.6 (0.9-2); Albumin Level 4.2 gm/dl (3.4-5.0); Alkaline Phosphatase 47 U/L (34-104); Anion Gap 10 (3-11); Aspartate Aminotransferase 22 U/L (13-39); BUN Creatinine Ratio 17.9 (10-20); Bilirubin,Total 0.6 mg/dl (0.2-1.0); Blood Urea Nitrogen 17 mg/dl (6-23); Carbon Dioxide 23 mmol/L (21-32); Chloride 106 mmol/L (98-107); Est GFR (African American) 76.5 ml/min; Globulin 2.7 gm/dl (2.5-4.0); Glucose 98 mg/dl (70-99(Fasting)); Magnesium 1.8 mg/dl (1.7-2.4); Sodium 139 mmol/L (136-145); Total Protein 6.9 gm/dl (6.0-8.3)
[2022-09-05 12:59] LABS: Troponin I High Sensitivity 4.1 pg/ml (0-14)
[2022-09-05 13:04] LABS: Lyme Ab IgG w/WB Rflx Negative (Negative); Lyme Ab IgM w/WB Rflx Negative (Negative)
[2022-09-05] MEDS ORDERED: ACETAMINOPHEN 500 MG TAB PO STA (13:28)
[2022-09-05] MEDS ORDERED: cefTRIAXone SODIUM 1,000 MG/50 ML BAG IV STA (13:47)
--- NOTE | 2022-09-05 14:53 | XRay Report ---
XR chest 2V PA/lateral CLINICAL HISTORY: Fever. COMPARISON STUDY: Chest CT May 15, 2016 and chest radiograph 04/16/2017 FINDINGS: Lung volumes are normal. Lungs are clear. Calcified granuloma within the right upper lobe i s incidentally noted. There is no pneumothorax or pleural effusion. Cardiac size is normal. Mediastin al contours are normal. There is no evidence for pulmonary edema. IMPRESSION: No acute cardiopulmonary findings. ACT 112: Negative or not required by law. Electronically signed by: Rasta Brown M.D. 09/05/2022 2:51 PM
[2022-09-05 15:17] LABS: Influenza A virus by PCR Negative (Neg); Influenza B virus by PCR Negative (Neg); RSV by PCR Negative (Neg); SARS CoV2 RNA(COVID-19)Cepheid NEGATIVE (Negative)
[2022-09-05] MEDS ORDERED: IBUPROFEN 200 MG TAB PO STA (15:22)
[2022-09-05] MEDS ORDERED: DOXYCYCLINE HYCLATE 100 MG in DEXTROSE 5% 100 ML IV ONE (15:30)
--- NOTE | 2022-09-05 16:39 | History & Physical Report ---
Date of Service September 05, 2022 Assessment & Plan (1) Syncope: Plan: Syncopal event x1 at home today Likely due to orthostasis from hypovolemia from dehydration. Patient appears dry on exam with dry mucous membranes. IVF, monitor orthostatic BPs (2) Tick bite: Plan: Admit to [facility] Patient presenting from home with reports of fever, body aches, syncopal event x 1. Febrile in ED at 39.3 --received Tylenol with improvement Patient suspects she had a tick bite on 08/15, tick was subsequently removed on 08/19. Patient received 1 day of empiric doxycycline by PCP. 3 days ago, patient developed body aches, fever. In the ED, Lyme IgG and IgM negative, Anaplasma and Babesia smears negative for inclusion bodies No other sources of infection identified, highly suspicious for tickborne illne ss. ?? False negative in the setting of partial treatment w/ doxycycline. Await confirmatory Babesia and Anaplasma testing Start IV doxycycline (3) History of pulmonary embolism: Plan: Continue Xarelto (4) Moderate persistent asthma: Plan: Not on routine inhalers, no signs of acute exacerbation (5) Depression: Plan: Continue citalopram (6) DVT prophylaxis: Plan: On Xarelto History of Present Illness Chief Complaint: Fever, body aches, syncopal event Primary Care Provider: Adelfo Tillman, 57-year-old female with PMH asthma, history of pulmonary embolism on Xarelto, depression, allergic rhinitis, and other problems listed below who presents the ED for evaluation of fever, body aches, syncopal event. Patient reports that she was bit by a tick about 3 weeks ago. She was bit on her left upper arm and the tick was fully removed. Patient called her PCP and was placed on 1 day of empiric doxycycline. 3 days ago, patient reports she developed myalgias and arthralgias along with a fever and a rash on her left upper arm where she was bit by the tick. Rash is circular in nature, warm and red. She reports fevers at home as high as 102.6. This morning, patient's heard a loud thud coming from the bathroom and he found the patient on the floor with her eyes rolled back in her head. He reports that he placed a cool washcloth on her head and she came to. There was no loss of bowel or bladder function. Patient was not confused. Patient was then brought to the ED for further evaluation. Patient denies chest pain or shortness of breath. She reports 1 episode of vomiting this morning however denies abdominal pain, diarrhea. No urinary symptoms. In the ED, patient spiked a fever of 39.3. Labs are unremarkable, Lyme IgG and IgM negative, Anaplasma and Babesia smears negative for inclusion bodies. Patient was given IVF and Tylenol. Allergies Allergy/AdvReac Type Severity Reaction Status Date / Time animal dander Allergy Unknown HAY FEVER Verified 09/05/22 12:32 No Known Drug Allergies Allergy Unknown NKDA Verified 09/05/22 12:32 pollen extracts Allergy Unknown HAY FEVER Verified 09/05/22 12:32 ragweed pollen Allergy Unknown HAYFEVER Verified 09/05/22 12:32 Dust Allergy Unknown HAY FEVER Uncoded 09/05/22 12:32 Home Medications Medication Instructions Recorded Confirmed Type azelastine 137 mcg (0.1 %) nasal 2 spray intranasal BID #0 BTLS 05/15/16 09/05/22 History spray aerosol citalopram 20 mg tablet 20 mg PO HS #0 tabs 05/15/16 09/05/22 History montelukast 10 mg tablet 10 mg PO PM #0 tabs 05/15/16 09/05/22 History multivitamin 1 tab PO DAILY #0 tabs 05/15/16 09/05/22 History albuterol sulfate 90 mcg/actuation 2 inh inhalation Q4H PRN sob ##0 05/17/17 09/05/22 History breath activated powder inhaler (ProAir RespiClick) fluticasone propionate 50 1 spray intranasal BID PRN 09/05/22 09/05/22 History mcg/actuation nasal Allergic Symptoms spray,suspension levocetirizine 5 mg tablet 5 mg PO DAILY 09/05/22 09/05/22 History rivaroxaban 20 mg tablet (Xarelto) 20 mg PO PM 09/05/22 09/05/22 History Past Med/Surg History Medical History Allergic rhinitis Depression History of pulmonary embolism Moderate persistent asthma Surgical History H/O dilation and curettage H/O sinus surgery History of arthroscopic knee surgery Hx of tonsillectomy Family History (Updated 09/05/22 @ 16:33 by SCARLETT Weiss) Mother Melanoma Social History (Updated 09/05/22 @ 16:33 by SCARLETT Weiss) Smoking Status: Never smoker Hx Alcohol Use: No Hx Substance Use: No Preferred Language: Luxembourger Communication Ability: Effective Fire Extinguisher Installer Required: No Beliefs That Will Affect Care: None Current Living Situation: Spouse Other Information That Helps Us Care for You: No Feels Safe at Home: Yes Safety Concerns: Feels Safe At This Time Review of Systems Review of Systems: ROS per HPI, all other systems reviewed and negative Physical Exam Constitutional: WD/WN, vitals as above Eyes: PERRL, conjunctivae normal, anicteric sclerae ENMT: Ears: no external ear abnormality Nose: no external nose abnormality Mouth: + dry oral mucous membranes Respiratory: normal respiratory effort, lungs clear to auscultation Cardiovascular: Rate/Rhythm: regular rate and regular rhythm Vessels: normal peripheral pulses Extremities: no edema Gastrointestinal (Abdomen): normal bowel sounds, soft, nontender, no hepatosplenomegaly Musculoskeletal: no cyanosis or clubbing, extremities motor strength 5/5 Skin: + rash (~ 6cm circular area on LUE w/ erythema, slightly raised. No drainage. ) skin is warm and dry Neurologic: PERRL, EOMI, accommodation nl, no face palsy, no dysarthria Psychiatric: A+Ox3, euthymic affect Results & Data Results & Data ([facility]) Vital Signs (Past 12 Hours) Vital Signs Temp Pulse Pulse Resp BP Pulse Ox O2 Del Method 09/05/22 15:48 37.6 C H 86 20 99/61 L 95 Room Air 09/05/22 13:28 39.3 C H 92 H 20 116/62 95 Room Air 09/05/22 11:00 79 20 95 Room Air 09/05/22 11:00 79 20 110/60 95 Room Air 09/05/22 10:28 37.0 C 82 20 98 Room Air Laboratory Results Short CBC 09/05/22 Range/Units 12:05 WBC 8.16 (4.8-10.8) K/ul Hgb 11.7 L (12.0-16.0) g/dl Hct 34.9 (34.1-44.9) % Plt Count 194 (130-400) K/uL BMP 09/05/22 12:05 Sodium 139 Potassium 4.0 Chloride 106 Carbon Dioxide 23 BUN 17 Creatinine 0.95 Glucose 98 Calcium 9.0 Liver Function 09/05/22 Range/Units 12:05 Total Bilirubin 0.6 (0.2-1.0) mg/dl AST 22 (13-39) U/L ALT 17 (7-52) U/L Alkaline Phosphatase 47 (34-104) U/L Albumin 4.2 (3.4-5.0) gm/dl Urine 09/05/22 Range/Units 11:39 Urine Color Yellow Urine Appearance Clear (Clear) Urine pH 6.5 (4.5-7.5) Ur Specific [place] 1.017 (1.000-1.030) Urine Protein Trace H (Negative) Urine Glucose (UA) Negative (Negative) Diagnostic Findings Chest X-Ray 09/05/22 14:22 XR chest 2V PA/lateral CLINICAL HISTORY: Fever. COMPARISON STUDY: Chest CT May 15, 2016 and chest radiograph 04/16/2017 FINDINGS: Lung volumes are normal. Lungs are clear. Calcified granuloma within the right upper lobe is incidentally noted. There is no pneumothorax or pleural effusion. Cardiac size is normal. Mediastinal contours are normal. There is no evidence for pulmonary edema. IMPRESSION: No acute cardiopulmonary findings. ACT 112: Negative or not required by law. Electronically signed by: Rasta Brown M.D. 09/05/2022 2:51 PM Code Status & VTE Plan Code Status Patient is a full code as per my discussion with her. VTE Prophylaxis Plan VTE Prophylaxis will be ordered: No Supervising Physician Co-Signing Physician Notes I have seen and examined the patient and have discussed the case with the provider above. I agree with the assessment and plan as stated. 57 yo F with recent tick embedded in her shoulder for 4 days per her report with subsequent high fevers, malaise and joint pains beginning one week later. Temp reported around 103F at home. Physical exam reveals large circular area of erythema on her right deltoid with a nodular center. Full skin exam performed and no other rash, eschar or wound noted. Physical exam is otherwise unremarkable. Agree with this clinically appearing consistent with rickettsial illness and started this patient on doxycycline empirically. Lyme negative. Awaiting anaplasma and babesia. Also she has no other symptoms that would suggest an alternative source of infection such as no respiratory or urinary or GI issues. CXR is clear and UA is normal. Cont doxycycline pending culture results and clinical improvement. DO Tramaine
[2022-09-05] MEDS: RIVAROXABAN 20 MG TAB PO SCH (17:39)
[2022-09-05] MEDS ORDERED: RIVAROXABAN 20 MG TAB PO SCH (21:00)
[2022-09-05] MEDS: ACETAMINOPHEN 325 MG TAB PO PRN (22:28)
[2022-09-05] MEDS: MONTELUKAST SODIUM 10 MG TABLET PO SCH (22:30)
[2022-09-05] MEDS: CITALOPRAM 20 MG TAB PO SCH (22:30)
[2022-09-06] MEDS ORDERED: KETOROLAC TROMETHAMINE 15 MG/ML VIAL IV ONE (00:21)
[2022-09-06] MEDS: DOXYCYCLINE HYCLATE 100 MG in DEXTROSE 5% 100 ML IV SCH ×2 (04:46→16:15)
[2022-09-06] MEDS: ACETAMINOPHEN 325 MG TAB PO PRN ×3 (07:26→18:43)
[2022-09-06 07:40] LABS: Hematocrit (blood only) 31.4 % (34.1-44.9); Hemoglobin 10.9 g/dl (12.0-16.0); Mean Corpuscular Hemoglobin 32.7 pg (25.0-34.0); Mean Corpuscular Hgb Conc 34.7 g/dL (32.0-36.0); Mean Corpuscular Volume 94.3 fL (80.0-100.0); Platelet Count 171 K/uL (130-400); RDW Coefficient of Variation 13.2 % (11.5-14.5); RDW Standard Deviation 45.7 fL (36.4-46.3); Red Blood Count 3.33 M/uL (3.93-5.22); White Blood Count 6.54 K/ul (4.8-10.8)
[2022-09-06 08:05] LABS: BUN Creatinine Ratio 17.2 (10-20); Calcium 8.1 mg/dl (8.5-10.1); Creatinine Clr Calc Pharmacy 66.7 ml/min; Est GFR (African American) 78.5 ml/min; Est GFR (Non-African American) 67.7 ml/min; Potassium 3.6 mmol/L (3.5-5.1)
[2022-09-06] MEDS: SODIUM CHLORIDE 0.9% 1000ML 1,000 ML IV SCH ×2 (08:18→17:00)
[2022-09-06] MEDS ORDERED: KETOROLAC TROMETHAMINE 10 MG TABLET PO PRN (08:33)
[2022-09-06] MEDS: cefTRIAXone SODIUM 2,000 MG in DEXTROSE 5% 50 ML IV SCH (09:01)
--- NOTE | 2022-09-06 09:50 | Electrocardiogram Report ---
Test Reason : Blood Pressure : / mmHG Vent. Rate : 079 BPM Atrial Rate : 079 BPM P-R Int : 134 ms QRS Dur : 090 ms QT Int : 382 ms P-R-T Axes : 071 080 065 degrees QTc Int : 438 ms Poor data quality, interpretation may be adversely affected Normal sinus rhythm Left atrial enlargement Nonspecific ST abnormality Anterolateral leads Abnormal ECG When compared with ECG of 06-APR-2017 14:57, Nonspecific ST abnormality Anterolateral leads more prononced Confirmed by Khari Pozo ([id number]) on 09/06/2022 9:50:02 AM Referred By: REFERRED SELF Confirmed By:Khari Pozo
--- NOTE | 2022-09-06 12:44 | Hospitalist Progress Note ---
Date of Service September 06, 2022 Assessment & Plan (1) Syncope: Plan: Syncopal Episode Likely due to orthostasis from hypovolemia/dehydration Continue gentle IV fluids No focal deficits Currently asymptomatic Will consider CT head headache persists (2) Tick bite: Plan: Presumed Lyme's disease H/O Tick bite on 08/15, Tick was subsequently removed on 08/19 Received 1 day course of doxycycline by PCP. Lyme Screen: Negative No evidence of intracytoplasmic neutrophilic inclusions to suggest anaplasmosis No evidence of red blood cell inclusions to suggest Babesia Blood Culture pending Continue IV doxycycline, Rocephin for now Titrate antibiotics as able (3) History of pulmonary embolism: Plan: Continue Xarelto (4) Moderate persistent asthma: Plan: Not on routine inhalers No signs of acute exacerbation (5) Depression: Plan: Continue citalopram (6) DVT prophylaxis: Plan: On Xarelto Admission and Anticipated Discharge Date Admission Date: September 05, 2022 Subjective Patient is seen and examined at bedside States having left shoulder erythema, soreness Also reports headache and generalized weakness Denies any chest pain, dyspnea, dizziness, nausea, abdominal pain Review of Systems Review of Systems: All systems reviewed & are unremarkable except as noted in Subjective Physical Exam Physical Exam: Physical Exam: Vitals signs as noted above General Appearance:Moderately built and nourished, no apparent distress Head: normocephalic, Atraumatic Eyes: normal inspection, EOMI Neck: supple, Trachea midline Respiratory/Chest: Normal breath sounds, CTA, No accessory muscle use Cardiovascular: S1, S2, No murmur Abdomen/GI:Soft, Non tender, Bowel sounds present Extremities/Musculoskeletal:normal inspection, no edema, Left shoulder erythema Neurologic/Psych:AAOX3, grossly no focal neurological deficits Skin: normal color, warm Results & Data Results & Data ([facility]) Vital Signs (Past 12 Hours) Vital Signs Temp Pulse Resp BP Pulse Ox O2 Del Method 09/06/22 11:37 37 C 09/06/22 09:50 37.7 C H 09/06/22 09:00 37.9 C H 09/06/22 08:23 39.2 C H 09/06/22 07:12 38.7 C H 91 H 18 107/66 96 Room Air 09/06/22 04:52 38.6 C H 09/06/22 02:06 37.9 C H Laboratory Results Short CBC 09/06/22 Range/Units 06:06 WBC 6.54 (4.8-10.8) K/ul Hgb 10.9 L (12.0-16.0) g/dl Hct 31.4 L (34.1-44.9) % Plt Count 171 (130-400) K/uL BMP 09/05/22 09/06/22 12:05 06:06 Sodium 139 137 Potassium 4.0 3.6 Chloride 106 107 Carbon Dioxide 23 23 BUN 17 16 Creatinine 0.95 0.93 Glucose 98 114 H Calcium 9.0 8.1 L Liver Function 09/05/22 Range/Units 12:05 Total Bilirubin 0.6 (0.2-1.0) mg/dl AST 22 (13-39) U/L ALT 17 (7-52) U/L Alkaline Phosphatase 47 (34-104) U/L Albumin 4.2 (3.4-5.0) gm/dl Urine 09/05/22 Range/Units 11:39 Urine Color Yellow Urine Appearance Clear (Clear) Urine pH 6.5 (4.5-7.5) Ur Specific [place] 1.017 (1.000-1.030) Urine Protein Trace H (Negative) Urine Glucose (UA) Negative (Negative)
[2022-09-06] MEDS: CETIRIZINE HCL 10 MG TABLET PO SCH ×2 (14:15→14:16)
[2022-09-06] MEDS: RIVAROXABAN 20 MG TAB PO SCH (17:00)
[2022-09-06] MEDS: MONTELUKAST SODIUM 10 MG TABLET PO SCH ×2 (21:42→21:44)
[2022-09-06] MEDS: CITALOPRAM 20 MG TAB PO SCH ×2 (21:42→21:44)
[2022-09-07] MEDS: ACETAMINOPHEN 325 MG TAB PO PRN ×3 (01:05→10:56)
[2022-09-07] MEDS: DOXYCYCLINE HYCLATE 100 MG in DEXTROSE 5% 100 ML IV SCH (04:02)
[2022-09-07] MEDS: CETIRIZINE HCL 10 MG TABLET PO SCH (08:24)
[2022-09-07] MEDS: cefTRIAXone SODIUM 2,000 MG in DEXTROSE 5% 50 ML IV SCH (09:07)
[2022-09-07 09:12] LABS: Basophils # (auto) 0.02 K/uL (0-0.2); Basophils % (auto) 0.5 %; Eosinophils # (auto) 0.17 K/uL (0-0.50); Eosinophils % (auto) 3.9 %; Hematocrit (blood only) 30.9 % (34.1-44.9); Hemoglobin 10.5 g/dl (12.0-16.0); Immature Granulocytes # (auto) 0.01 K/uL (0.00-0.02); Immature Granulocytes % (auto) 0.2 %; Lymphocytes # (auto) 1.24 K/uL (1.2-3.4); Lymphocytes % (auto) 28.7 %; Mean Corpuscular Hemoglobin 32.5 pg (25.0-34.0); Mean Corpuscular Volume 95.7 fL (80.0-100.0); Mean Platelet Volume 9.3 fL (9.4-12.3); Monocytes # (auto) 0.39 K/uL (0.24-0.82); Neutrophils # (auto) 2.49 K/uL (1.4-6.5); Neutrophils % (auto) 57.7 %; Platelet Count 165 K/uL (130-400); RDW Standard Deviation 45.8 fL (36.4-46.3); Red Blood Count 3.23 M/uL (3.93-5.22); White Blood Count 4.32 K/ul (4.8-10.8)
[2022-09-07 09:36] LABS: BUN Creatinine Ratio 12.2 (10-20); Calcium 8.1 mg/dl (8.5-10.1); Creatinine Clr Calc Pharmacy 83.9 ml/min; Est GFR (African American) 103.5 ml/min; Est GFR (Non-African American) 89.3 ml/min; Magnesium 1.9 mg/dl (1.7-2.4); Potassium 3.8 mmol/L (3.5-5.1)
--- NOTE | 2022-09-07 10:46 | CT Scan Report ---
CT head/brain wo con CLINICAL HISTORY: headache Technique: Contiguous axial CT images of the head were acquired from the base of the skull to the natasha benson without intravenous contrast administration. Images were viewed in brain, subdural and bone [facility] . Automated dose lowering techniques and/or adjustment according to patient size were utilized for this exam. Comparison: None available at the time of this dictation. Findings: The ventricles, basal cisterns, and cerebral sulci are normal. There is no acute intracranial hemorrh age or evidence of acute territorial infarction. Neither mass effect, shift of the midline structures , nor abnormal extra-axial fluid collections are shown. Imaged portions of the paranasal sinuses and mastoid air cells are clear. The orbits appear normal. There are no acute fractures of the calvaria or scalp swelling. Impression: No acute intracranial hemorrhage, no evidence of acute territorial infarction or other acute intracra nial disease process. ACT 112: Negative or not required by law. Electronically signed by: Good Rubio M.D. 09/07/2022 10:44 AM
--- NOTE | 2022-09-07 13:45 | Student Report ---
[facility] Med Student Progress Note Date of Service Date of service: September 07, 2022 Subjective Subjective: Pt resting in bed. Denies fever, chills, night sweats, joint pain, muscle aches. Does still have a BENJAMIN, but reports it is greatly improved. Denies CP, SOB, abd pain, N/V/D. Overall patient states she is feeling much better and is anxious to go back home. Pt feels tick bite site has decreased in size and denies any more syncopal episodes since her first. Pt did inquire about CT scan results but films had not been read by radiology yet. Pt with no other questions, concerns at this time. ROS ROS: See above for pertinent positives & negatives. A total of 10 systems reviewed and were otherwise negative. Physical Exam Physical Exam: General: Well-appearing, converses easily and appropriately, in no significant distress. HEENT: No scleral icterus, PERRLA, normocephalic. Cardiovascular: S1, S2 RRR. No murmur, gallop, S3, S4. Pedal pulses +2. Pulmonary: Clear to auscultation bilaterally, normal work of breathing. Abdomen: Soft, nontender, nondistended, positive bowel sounds. Passing gas. Musculoskeletal: Atraumatic, no peripheral edema. Neurologic: A&O x4, full strength in all 4 extremities. Skin: Warm, dry, pink. Left UE/shoulder remains swollen from tickbite with darker center. Per patient, swelling is improved. Results Results: Vital Signs Temp 36.4 C L 09/07/22 13:14 Pulse 61 09/07/22 13:14 Resp 18 09/07/22 13:14 BP 95/58 L 09/07/22 13:14 Pulse Ox 98 09/07/22 13:14 O2 Del Method 09/07/22 11:06 Intake & Output 09/06/22 09/07/22 09/07/22 18:59 06:59 18:59 Intake Total 1420 / 2530 1110 / 2530 70 / 70 Output Total 400 / 400 Balance 1020 / 2130 1110 / 2130 70 / 70 Weight 78.2 kg Intake: IV 1180 / 2290 1110 / 2290 70 / 70 Doxycycline Hyclate 100 mg In 110 / 220 110 / 220 Dextrose 5% 100 ml @ 50 mls/hr IV Q12H [facility] Rx#:[id number] Sodium Chloride 0.9% 1000ML 1, 1000 / 2000 1000 / 2000 000 ml @ 125 mls/hr IV .Q8H [facility] Rx#:[id number] cefTRIAXone SODIUM 2,000 mg In 70 / 70 70 / 70 Dextrose 5% 50 ml @ 100 mls/hr IV Q24H [facility] Rx#:[id number] Oral 240 / 240 Output: Urine 400 / 400 Other: # Unmeasured Voids 1 Short CBC 09/07/22 Range/Units 08:43 WBC 4.32 L (4.8-10.8) K/ul Hgb 10.5 L (12.0-16.0) g/dl Hct 30.9 L (34.1-44.9) % Plt Count 165 (130-400) K/uL BMP 09/07/22 08:43 Sodium 140 Potassium 3.8 Chloride 110 H Carbon Dioxide 24 BUN 9 Creatinine 0.74 Glucose 129 H Calcium 8.[address] 09/07/22 09:23 CT head/brain wo con CLINICAL HISTORY: headache Technique: Contiguous axial CT images of the head were acquired from the base of the skull to the vertex without intravenous contrast administration. Images were viewed in brain, subdural and bone windows. Automated dose lowering techniques and/or adjustment according to patient size were utilized for this exam. Comparison: None available at the time of this dictation. Findings: The ventricles, basal cisterns, and cerebral sulci are normal. There is no acute intracranial hemorrhage or evidence of acute territorial infarction. Neither mass effect, shift of the midline structures, nor abnormal extra-axial fluid collections are shown. Imaged portions of the paranasal sinuses and mastoid air cells are clear. The orbits appear normal. There are no acute fractures of the calvaria or scalp swelling. Impression: No acute intracranial hemorrhage, no evidence of acute territorial infarction or other acute intracranial disease process. ACT 112: Negative or not required by law. Electronically signed by: Good Rubio M.D. 09/07/2022 10:44 AM A&P A&P: Assessment and Plan: 1. Orthostatic syncope secondary to dehydration: Most likely d/t dehydration, tick-borne illness. Pt still with BENJAMIN, hydration/nutrition encouraged. CT scan ordered. Encourage hydration, nutrition. 2. Tick bite: Awaiting Babesia testing confirmation. Will continue on course of doxycycline for total of 3 weeks. 3. PE: Continue rivaroxaban. CT scan completed, negative for acute pathologies. 4. Asthma: Per patient, she does not use rescue inhaler. Continue cetirizine and montelukast. VTE: Rivaroxaban. Disposition: Plan for discharge later today.
[2022-09-07] MEDS: RIVAROXABAN 20 MG TAB PO SCH (15:47)
[2022-09-07] MEDS ORDERED: DOXYCYCLINE HYCLATE 100 MG CAP PO ONE (16:00)
--- NOTE | 2022-09-07 17:33 | Discharge Summary ---
Date of Service September 07, 2022 Admission HPI Per Admitting Provider 57-year-old female with PMH asthma, history of pulmonary embolism on Xarelto, depression, allergic rhinitis, and other problems listed below who presents the ED for evaluation of fever, body aches, syncopal event. Patient reports that she was bit by a tick about 3 weeks ago. She was bit on her left upper arm and the tick was fully removed. Patient called her PCP and was placed on 1 day of empiric doxycycline. 3 days ago, patient reports she developed myalgias and arthralgias along with a fever and a rash on her left upper arm where she was bit by the tick. Rash is circular in nature, warm and red. She reports fevers at home as high as 102.6. This morning, patient's heard a loud thud coming from the bathroom and he found the patient on the floor with her eyes rolled back in her head. He reports that he placed a cool washcloth on her head and she came to. There was no loss of bowel or bladder function. Patient was not confused. Patient was then brought to the ED for further evaluation. Patient denies chest pain or shortness of breath. She reports 1 episode of vomiting this morning however denies abdominal pain, diarrhea. No urinary symptoms. In the ED, patient spiked a fever of 39.3. Labs are unremarkable, Lyme IgG and IgM negative, Anaplasma and Babesia smears negative for inclusion bodies. Patient was given IVF and Tylenol. Admission Exam Per Admitting Provider Physical Exam Constitutional: WD/WN, vitals as above Eyes: PERRL, conjunctivae normal, anicteric sclerae ENMT: Ears: no external ear abnormality Nose: no external nose abnormality Mouth: + dry oral mucous membranes Respiratory: normal respiratory effort, lungs clear to auscultation Cardiovascular: Rate/Rhythm: regular rate and regular rhythm Vessels: normal peripheral pulses Extremities: no edema Gastrointestinal (Abdomen): normal bowel sounds, soft, nontender, no hepatosplenomegaly Musculoskeletal: no cyanosis or clubbing, extremities motor strength 5/5 Skin: + rash (~ 6cm circular area on LUE w/ er ythema, slightly raised. No drainage. ) skin is warm and dry Neurologic: PERRL, EOMI, accommodation nl, no face palsy, no dysarthria Psychiatric: A+Ox3, euthymic affect Principal Diagnosis Tickborne illness Discharge Exam Constitutional WD/WN, vitals as above Respiratory normal respiratory effort, lungs clear to auscultation Cardiovascular Rate/Rhythm: regular rate and regular rhythm Vessels: normal peripheral pulses Extremities: no edema Gastrointestinal (Abdomen) Percussion/Palpation: abdomen soft; abdomen nontender Skin ~10 cm circular rash on LUE on left deltoid, slightly pink in color with nodular center Neurologic no focal motor deficits Psychiatric A+Ox3, euthymic affect Discharge Data Allergies Allergy/AdvReac Type Severity Reaction Status Date / Time animal dander Allergy Unknown HAY FEVER Verified 09/05/22 12:32 No Known Drug Allergies Allergy Unknown NKDA Verified 09/05/22 12:32 pollen extracts Allergy Unknown HAY FEVER Verified 09/05/22 12:32 ragweed pollen Allergy Unknown HAYFEVER Verified 09/05/22 12:32 Dust Allergy Unknown HAY FEVER Uncoded 09/05/22 12:32 Ordered Studies Laboratory Results WBC 4.32 K/ul (4.8-10.8) L 09/07/22 08:43 RBC 3.23 M/uL (3.93-5.22) L 09/07/22 08:43 Hgb 10.5 g/dl (12.0-16.0) L 09/07/22 08:43 Hct 30.9 % (34.1-44.9) L 09/07/22 08:43 MCV 95.7 fL (80.0-100.0) 09/07/22 08:43 MCH 32.5 pg (25.0-34.0) 09/07/22 08:43 MCHC 34.0 g/dL (32.0-36.0) 09/07/22 08:43 RDW Std Deviation 45.8 fL (36.4-46.3) 09/07/22 08:43 RDW Coeff of Sen 13.0 % (11.5-14.5) 09/07/22 08:43 Plt Count 165 K/uL (130-400) 09/07/22 08:43 MPV 9.3 fL (9.4-12.3) L 09/07/22 08:43 Immature Gran % (Auto) 0.2 % 09/07/22 08:43 Neut % (Auto) 57.7 % 09/07/22 08:43 Lymph % (Auto) 28.7 % 09/07/22 08:43 [place] % (Auto) 9.0 % 09/07/22 08:43 Eos % (Auto) 3.9 % 09/07/22 08:43 Baso % (Auto) 0.5 % 09/07/22 08:43 Neut # (Auto) 2.49 K/uL (1.4-6.5) 09/07/22 08:43 Lymph # (Auto) 1.24 K/uL (1.2-3.4) 09/07/22 08:43 [place]es # (Auto) 0.39 K/uL (0.24-0.82) 09/07/22 08:43 Eos # (Auto) 0.17 K/uL (0-0.50) 09/07/22 08:43 Baso # (Auto) 0.02 K/uL (0-0.2) 09/07/22 08:43 Immature Gran # (Auto) 0.01 K/uL (0.00-0.02) 09/07/22 08:43 PT 12.2 Seconds (9.0-12.0) H 09/05/22 12:05 INR 1.2 (0.9-1.1) H 09/05/22 12:05 Sodium 140 mmol/L (136-145) 09/07/22 08:43 Potassium 3.8 mmol/L (3.5-5.1) 09/07/22 08:43 Chloride 110 mmol/L (98-107) H 09/07/22 08:43 Carbon Dioxide 24 mmol/L (21-32) 09/07/22 08:43 Anion Gap 6 (3-11) 09/07/22 08:43 BUN 9 mg/dl (6-23) 09/07/22 08:43 Creatinine 0.74 mg/dl (0.6-1.2) 09/07/22 08:43 Est Cr Clr Drug Dosing 83.9 ml/min 09/07/22 08:43 Est GFR ( Amer) 103.5 ml/min 09/07/22 08:43 Est GFR (Non-Af Amer) 89.3 ml/min 09/07/22 08:43 BUN/Creatinine Ratio 12.2 (10-20) 09/07/22 08:43 Glucose 129 mg/dl (70-99(Fasting)) H 09/07/22 08:43 Lactate 0.8 mmol/L (0.4-2.0) 09/05/22 14:22 Calcium 8.1 mg/dl (8.5-10.1) L 09/07/22 08:43 Magnesium 1.9 mg/dl (1.7-2.4) 09/07/22 08:43 Total Bilirubin 0.6 mg/dl (0.2-1.0) 09/05/22 12:05 AST 22 U/L (13-39) 09/05/22 12:05 ALT 17 U/L (7-52) 09/05/22 12:05 Alkaline Phosphatase 47 U/L (34-104) 09/05/22 12:05 Troponin I High Sens 4.1 pg/ml (0-14) 09/05/22 12:05 Total Protein 6.9 gm/dl (6.0-8.3) 09/05/22 12:05 Albumin 4.2 gm/dl (3.4-5.0) 09/05/22 12:05 Globulin 2.7 gm/dl (2.5-4.0) 09/05/22 12:05 Albumin/Globulin Ratio 1.6 (0.9-2) 09/05/22 12:05 TSH 0.484 uIu/ml (0.300-4.500) 09/05/22 12:05 Urine Color Yellow 09/05/22 11:39 Urine Appearance Clear (Clear) 09/05/22 11:39 Urine pH 6.5 (4.5-7.5) 09/05/22 11:39 Ur Specific [place] 1.017 (1.000-1.030) 09/05/22 11:39 Urine Protein Trace (Negative) H 09/05/22 11:39 Urine Glucose (UA) Negative (Negative) 09/05/22 11:39 Urine Ketones Negative (Negative) 09/05/22 11:39 Urine Blood 2+ (Negative) H 09/05/22 11:39 Urine Nitrite Negative (Negative) 09/05/22 11:39 Urine Bilirubin Negative (Negative) 09/05/22 11:39 Urine Urobilinogen Negative (Negative) 09/05/22 11:39 Ur Leukocyte Esterase Negative (Negative) 09/05/22 11:39 Urine WBC (Auto) 1-5 /hpf (0-5) 09/05/22 11:39 Urine RBC (Auto) 10-30 /hpf (0-4) H 09/05/22 11:39 U Hyaline Cast (Auto) 1-5 /lpf (0-5) 09/05/22 11:39 U Epithel Cells (Auto) 20-30 /lpf (0-5) H 09/05/22 11:39 Urine Bacteria (Auto) Negative (Negative) 09/05/22 11:39 Anaplasma Smear See Comment 09/05/22 12:05 Babesia Smear See Comment 09/05/22 12:05 Lyme Disease IgG Ab Negative (Negative) 09/05/22 12:05 Lyme Disease IgM Ab Negative (Negative) 09/05/22 12:05 SARS-CoV-2 (PCR) NEGATIVE (Negative) 09/05/22 14:13 Influenza Type A (PCR) Negative (Neg) 09/05/22 14:13 Influenza Type B (PCR) Negative (Neg) 09/05/22 14:13 RSV (RT-PCR) Negative (Neg) 09/05/22 14:13 Impressions Chest X-Ray 09/05/22 14:22 XR chest 2V PA/lateral CLINICAL HISTORY: Fever. COMPARISON STUDY: Chest CT May 15, 2016 and chest radiograph 04/16/2017 FINDINGS: Lung volumes are normal. Lungs are clear. Calcified granuloma within the right upper lobe is incidentally noted. There is no pneumothorax or pleural effusion. Cardiac size is normal. Mediastinal contours are normal. There is no evidence for pulmonary edema. IMPRESSION: No acute cardiopulmonary findings. ACT 112: Negative or not required by law. Electronically signed by: Rasta Brown M.D. 09/05/2022 2:[address] 09/07/22 09:23 CT head/brain wo con CLINICAL HISTORY: headache Technique: Contiguous axial CT images of the head were acquired from the base of the skull to the vertex without intravenous contrast administration. Images were viewed in brain, subdural and bone windows. Automated dose lowering techniques and/or adjustment according to patient size were utilized for this exam. Comparison: None available at the time of this dictation. Findings: The ventricles, basal cisterns, and cerebral sulci are normal. There is no acute intracranial hemorrhage or evidence of acute territorial infarction. Neither mass effect, shift of the midline structures, nor abnormal extra-axial fluid collections are shown. Imaged portions of the paranasal sinuses and mastoid air cells are clear. The orbits appear normal. There are no acute fractures of the calvaria or scalp swelling. Impression: No acute intracranial hemorrhage, no evidence of acute territorial infarction or other acute intracranial disease process. ACT 112: Negative or not required by law. Electronically signed by: Good Rubio M.D. 09/07/2022 10:44 AM Hospital Course (1) Tick bite: Presumed Lyme's disease or other tickborne illness H/O Tick bite on 08/15, Tick was subsequently removed on 08/19 Received 1 day course of doxycycline by PCP. Lyme Screen: Negative No evidence of intracytoplasmic neutrophilic inclusions to suggest anaplasmosis No evidence of red blood cell inclusions to suggest Babesia Babesia PCR and Western blot pending Blood Culture NGTD Received IV doxycycline and IV ceftriaxone, will transition to doxycycline 100 mg twice daily to complete total 3 week course (2) Syncope: Syncopal Episode Likely due to orthostasis from hypovolemia/dehydration Received IVF, no further syncopal events or lightheadedness/dizziness Due to reports of ongoing (however improving) headache, head CT was obtained on day of discharge that was unremarkable for acute finding (3) History of pulmonary embolism: Continue Xarelto (4) Moderate persistent asthma: Not on routine inhalers No signs of acute exacerbation (5) Depression: Continue citalopram Total Time Total Time Spent Total Time Spent (In Minutes): 35 Discharge Plan Discharge Items Patient Disposition: Home - Self-Care Reason For Visit: Fever, Passed Out Discharge Diagnosis: Suspected Tick Borne Illness Activity: Resume your previous activity Non-emergency contact: Primary Care Provider Call non-emergency contact if: you have any medication questions, your symptoms worsen, your pain is not controlled and you have a fever Follow-up/Referrals: Adelfo Tillman DO [Primary Care Provider] - (Date & Time 09/10/2022 12:00 PM Provider Yadiel Scherer DO Department Family [facility] ) Diet: Regular Addtl Attending Provider Instructions: You were admitted to the hospital for fever, body aches, and passing out at home. Given your recent tick bite, this is likely a tickborne illness. Even though Lyme testing was negative, a false negative is a possibility. Confirmatory testing for babesiosis (another tickborne illness) is pending at the time of discharge however treatment is the same. You likely passed out from being dehydrated from fevers. You received IV fluids. You will need to continue to take doxycycline 100 mg twice daily for the next 19 days to complete 3 weeks of treatment. Start taking on 09/08 at home. It was a pleasure taking care of you. If you need to reach a member of the [facility] hospitalist team at [facility], please call [phone]. SCARLETT Weiss Pending Studies at Discharge: Yes Studies:: Babesia PCR Lyme Western Blot Stand-Alone Forms: My [facility], Smoking Cessation Medications and DC Order Prescriptions: New doxycycline hyclate 100 mg tablet 100 mg PO BID 19 Days Qty: 38 0RF Rx Instructions: start taking on 09/08 Continued multivitamin Tablet 1 tab PO DAILY Qty: 0 citalopram 20 mg Tablet 20 mg PO HS Qty: 0 montelukast 10 mg Tablet 10 mg PO PM Qty: 0 azelastine 137 mcg (0.1 %) Aerosol,[place] 2 spray INTRANASAL BID Qty: 0 Rx Instructions: administer into each nostril ProAir RespiClick 90 mcg/actuation Aerosol Powdr Breath Activated 2 inh INHALATION Q4H PRN (Reason: sob) Qty: 0 Label Comments: USES VERY RARELY levocetirizine 5 mg Tablet 5 mg PO DAILY Xarelto 20 mg tablet 20 mg PO PM fluticasone propionate 50 mcg/actuation [place],Suspension 1 spray INTRANASAL BID PRN (Reason: Allergic Symptoms) Rx Instructions: administer into each nostril Discharge Orders: Discharge Order (Routine); Ordered 09/07/22 Ordered By: Cecy Rothman Admission Data Admit Date/Time: 09/06/22 16:46 Attending Provider: David Siddiqi Admit Provider: David Siddiqi Primary Care Provider: Adelfo Tillman Other Providers: Jazmin Redd Other Interventions: Discharge Summary Assessment (RN) Last Done: 09/07/22 13:14 Supervising Physician Co-Signing Physician Notes Patient is seen and examined at bedside. States feeling much better. Headache much improved. Generalized body ache, joint ache seems to have been resolved. CT head showed no acute intracranial abnormality. Physical Exam: Vitals signs as noted above General Appearance:Moderately built and nourished, no apparent distress Head: normocephalic, Atraumatic Eyes: normal inspection, EOMI Neck: supple, Trachea midline Respiratory/Chest: Normal breath sounds, CTA, No accessory muscle use Cardiovascular: S1, S2, No murmur Abdomen/GI:Soft, Non tender, Bowel sounds present Extremities/Musculoskeletal:normal inspection, no edema, Left shoulder erythema Neurologic/Psych:AAOX3, grossly no focal neurological deficits Skin: normal color, warm Presumed Lyme disease Agree with continuing doxycycline Babesia PCR, Western blot pending Advised to follow-up with PCP for further management. I personally reviewed the record. Patient is interviewed and examined at bedside. Patient's care is coordinated with Cecy Rothman [employer]. Please refer to the documentation above for details of patient's presentation and for discussion of other issues.
[2022-09-08 17:37] LABS: Babesia microti DNA Not Detected (Not Detected)
[2022-09-09 14:52] LABS: 18KDIGG Band NON-REACTIVE; 23KDIGG Band NON-REACTIVE; 23KDIGM Band NON-REACTIVE; 28KDIGG Band NON-REACTIVE; 30KDIGG Band NON-REACTIVE; 39KDIGG Band NON-REACTIVE; 39KDIGM Band NON-REACTIVE; 41KDIGG Band REACTIVE; 41KDIGM Band NON-REACTIVE; 45KDIGG Band NON-REACTIVE; 58KDIGG Band NON-REACTIVE; 66KDIGG Band NON-REACTIVE; 93KDIGG Band NON-REACTIVE; Lyme Antibodies, WB IgG NEGATIVE (NEGATIVE); Lyme Antibodies, WB IgM NEGATIVE (NEGATIVE)
== END 2022-09-07 17:33 | disposition home or self-care (01) ==
LOC: ED 10:06 → 3E 10:06 → SUATTDRO 15:19 → 3E 16:30